=== PATIENT | male | born 1975 | race Caucasian/White ===

== ENCOUNTER → 2016-06-28 | Outpatient (CLI) | payer OTHER ==
[~2016-06-28] MED LIST: CAMP333T PO; DEPA500T2 PO; DIVA500T9 PO; FISHCAP PO; OMEG100011 PO; OMEP40CA2 PO; OXCA300T PO; PARO30TA2 PO; PAXI40TA2 PO; SERO200T2 PO; TRAZ100T2 PO; TRAZ150T PO; TRIL300S PO; TRIL600T PO; [UNRECOGNIZED DRUG - CODE] PO; [UNRECOGNIZED DRUG - CODE] PO
[2016-06-28 09:51] LABS: MEAN CORPUSCULAR HEMOGLOBIN 30.1 pg (27.0-33.0); MEAN CORPUSCULAR HGB CONC 33.5 g/dl (32.0-36.5); MEAN CORPUSCULAR VOLUME 89.9 fl (80.0-96.0); RED CELL DISTRIBUTION WIDTH 12.3 % (11.5-14.5); WHITE BLOOD COUNT 10.8 K/mm3 (4.0-10.0)
[2016-06-28 10:32] LABS: ALBUMIN/GLOBULIN RATIO 1.48 (1.00-1.93); ALKALINE PHOSPHATASE 86 U/L (45-117); ALT/SGPT 31 U/L (12-78); ANION GAP 7 MEQ/L (8-16); AST/SGOT 10 U/L (15-37); BILIRUBIN,TOTAL 0.3 MG/DL (0.2-1.0); BLOOD UREA NITROGEN 12 MG/DL (7-18); CALCIUM LEVEL 9.7 MG/DL (8.5-10.1); CARBON DIOXIDE LEVEL 28 MEQ/L (21-32); CHLORIDE LEVEL 107 MEQ/L (98-107); CHOLESTEROL LEVEL 151 MG/DL (<200); CREATININE FOR GFR 1.15 MG/DL (0.70-1.30); GLOMERULAR FILTRATION RATE > 60.0 (>60); GLUCOSE, FASTING 100 MG/DL (70-105); POTASSIUM SERUM 4.4 MEQ/L (3.5-5.1); SODIUM LEVEL 142 MEQ/L (136-145); TOTAL PROTEIN 6.7 GM/DL (6.4-8.2); TRIGLYCERIDES LEVEL 113 MG/DL (<150)
== END ==
LOC: M LAB 09:02
PROVIDERS: ATTEND Nurse Practitioner Family
DX: E78.00 Pure hypercholesterolemia, unspecified (principal); I10 Essential (primary) hypertension; E55.9 Vitamin D deficiency, unspecified

== ENCOUNTER → 2016-06-28 | Outpatient (CLI) | payer OTHER ==
[2016-06-28 10:40] LABS: MAGNESIUM LEVEL 2.1 MG/DL (1.8-2.4)
[2016-06-28 10:41] LABS: LITHIUM LEVEL 0.77 MEQ/L (0.60-1.20)
== END ==
LOC: M LAB 09:06
PROVIDERS: ATTEND Psychiatry & Neurology Psychiatry
DX: Z79.899 Other long term (current) drug therapy (principal); Z51.81 Encounter for therapeutic drug level monitoring

== ENCOUNTER → 2016-07-26 | Outpatient (REF) | payer OTHER ==
[2016-07-26 14:07] LABS: BASO % 0.6 % (0.0-1.0); EOS # 0.3 K/mm3 (0.0-0.50); EOS % 3.6 % (0.0-3.0); LARGE UNSTAINED CELL # 0.2 K/mm3 (0.0-0.4); LARGE UNSTAINED CELL % 2.2 % (0.0-4.0); LYMPH % 23.8 % (24.0-44.0); MEAN CORPUSCULAR HEMOGLOBIN 30.3 pg (27.0-33.0); MEAN CORPUSCULAR HGB CONC 33.2 g/dl (32.0-36.5); MEAN CORPUSCULAR VOLUME 91.4 fl (80.0-96.0); MONO # 0.5 K/mm3 (0.0-0.8); MONO % 5.6 % (0.0-5.0); NEUTROPHILS # 5.4 K/mm3 (1.8-7.7); NEUTROPHILS % 64.2 % (36.0-66.0); PLATELET COUNT, AUTOMATED 262 k/mm3 (150-450); RED CELL DISTRIBUTION WIDTH 11.8 % (11.5-14.5); WHITE BLOOD COUNT 8.4 K/mm3 (4.0-10.0)
[2016-07-26 14:13] LABS: ALBUMIN 4.4 GM/DL (3.2-5.2); ALBUMIN/GLOBULIN RATIO 1.52 (1.00-1.93); ALKALINE PHOSPHATASE 99 U/L (45-117); ALT/SGPT 31 U/L (12-78); ANION GAP 8 MEQ/L (8-16); AST/SGOT 10 U/L (15-37); BILIRUBIN,TOTAL 0.3 MG/DL (0.2-1.0); BLOOD UREA NITROGEN 13 MG/DL (7-18); CALCIUM LEVEL 9.5 MG/DL (8.5-10.1); CARBON DIOXIDE LEVEL 27 MEQ/L (21-32); CHLORIDE LEVEL 107 MEQ/L (98-107); CREATININE FOR GFR 1.21 MG/DL (0.70-1.30); FREE T4 1.05 NG/DL (0.76-1.46); GLOMERULAR FILTRATION RATE > 60.0 (>60); GLUCOSE, FASTING 98 MG/DL (70-105); POTASSIUM SERUM 4.4 MEQ/L (3.5-5.1); SODIUM LEVEL 142 MEQ/L (136-145); TOTAL PROTEIN 7.3 GM/DL (6.4-8.2)
[2016-07-26 14:20] LABS: VITAMIN B12 LEVEL 785 PG/ML (247-911)
== END ==
LOC: M LABNEURO 12:45
PROVIDERS: ATTEND Psychiatry & Neurology Neurology
DX: G21.11 Neuroleptic induced parkinsonism (principal); G25.0 Essential tremor; G24.8 Other dystonia

== ENCOUNTER → 2016-10-19 | Outpatient (CLI) | payer OTHER | LOC: M LAB 10:54 | PROVIDERS: ATTEND Psychiatry & Neurology Psychiatry | DX: Z51.81 Encounter for therapeutic drug level monitoring (principal); Z79.899 Other long term (current) drug therapy ==

== ENCOUNTER → 2016-10-19 | Outpatient (CLI) | payer OTHER | LOC: M LAB 10:59 | PROVIDERS: ATTEND Nurse Practitioner Family | DX: E55.9 Vitamin D deficiency, unspecified (principal) ==

== ENCOUNTER 2016-12-28 13:09 | Inpatient (IN) | payer OTHER ==
[~2016-12-28] VITALS: Ht 182.9 cm; Wt 97.0 kg
[2016-12-28] MEDS ORDERED: LAMO10TA PO (13:51)
[2016-12-28] MEDS ORDERED: VITA100T60 PO (13:51)
[2016-12-28] MEDS ORDERED: ANTA250T PO (13:51)
[2016-12-28] MEDS ORDERED: TRIH0.4E PO (13:51)
[2016-12-28] MEDS ORDERED: LISI10TA4 PO (13:51)
[2016-12-28] MEDS ORDERED: ALL10TAB27 PO (13:51)
[2016-12-28] MEDS ORDERED: PRIM250T8 PO (13:51)
[2016-12-28] MEDS ORDERED: OMEP40CA2 PO (13:51)
[2016-12-28] MEDS ORDERED: FISH1000 PO (13:51)
[2016-12-28] MEDS ORDERED: MAGN500C PO (13:51)
[2016-12-28] MEDS ORDERED: REXU1TAB6 PO (13:51)
[2016-12-28] MEDS ORDERED: VITA20008 PO (13:51)
[2016-12-28] MEDS ORDERED: SIMV20TA2 PO (13:51)
[2016-12-28] MEDS ORDERED: CALC950T PO (13:51)
[2016-12-28] MEDS ORDERED: LITH300C PO ×2 (13:51)
[2016-12-28 14:52] LABS: MEAN CORPUSCULAR HEMOGLOBIN 31.2 pg (27.0-33.0); MEAN CORPUSCULAR HGB CONC 33.3 g/dl (32.0-36.5); MEAN CORPUSCULAR VOLUME 93.5 fl (80.0-96.0); RED CELL DISTRIBUTION WIDTH 12.6 % (11.5-14.5); WHITE BLOOD COUNT 6.3 K/mm3 (4.0-10.0)
[2016-12-28 15:10] LABS: METHADONE URINE NEGATIVE (NEGATIVE)
[2016-12-28 15:21] LABS: ALBUMIN 3.8 GM/DL (3.2-5.2); ALBUMIN/GLOBULIN RATIO 1.27 (1.00-1.93); ALKALINE PHOSPHATASE 69 U/L (45-117); ALT/SGPT 26 U/L (12-78); ANION GAP 5 MEQ/L (8-16); AST/SGOT 13 U/L (15-37); BILIRUBIN,DIRECT 0.1 MG/DL (0.0-0.2); BILIRUBIN,TOTAL 0.5 MG/DL (0.2-1.0); BLOOD UREA NITROGEN 14 MG/DL (7-18); CALCIUM LEVEL 9.2 MG/DL (8.5-10.1); CARBON DIOXIDE LEVEL 26 MEQ/L (21-32); CHLORIDE LEVEL 103 MEQ/L (98-107); CREATININE FOR GFR 0.97 MG/DL (0.70-1.30); GLOMERULAR FILTRATION RATE > 60.0 (>60); GLUCOSE, FASTING 114 MG/DL (70-105); POTASSIUM SERUM 4.1 MEQ/L (3.5-5.1); SODIUM LEVEL 134 MEQ/L (136-145); TOTAL PROTEIN 6.8 GM/DL (6.4-8.2)
[2016-12-28 15:22] LABS: LITHIUM LEVEL 1.11 MEQ/L (0.60-1.20)
[2016-12-28] MEDS ORDERED: PRIM50TA6 PO (17:13)
[2016-12-28] MEDS ORDERED: TRIH5TAB PO (17:13)
[2016-12-28] MEDS ORDERED: MAALOX 30 ML SUSP *UDC PO PRN (17:15)
[2016-12-28] MEDS ORDERED: ACETAMINOPHEN TAB 650MG DOSE (2X325MG) PO PRN (17:15)
[2016-12-28 20:15] VITALS: BP 112/59
[2016-12-28] MEDS ORDERED: CALC250T PO (22:35)
[2016-12-28] MEDS: PRIMIDONE 50 MG TAB PO SCH (23:27)
[2016-12-28] MEDS: LITHIUM CARBONATE 300 MG CAP PO SCH (23:27)
[2016-12-28] MEDS: TRIHEXYPHENIDYL 2 MG TAB PO SCH (23:27)
[2016-12-28] MEDS: SIMVASTATIN 20 MG TAB PO SCH (23:27)
[2016-12-28] MEDS: OMEGA-3 1050MG CAPSULE PO SCH (23:27)
[2016-12-28] MEDS: VITAMIN D 1,000 INTERNATIONAL UNITS TABLET PO SCH (23:28)
[2016-12-29 07:15] VITALS: BP 108/57
[2016-12-29 07:32] VITALS: BP 108/57
[2016-12-29] MEDS: OMEPRAZOLE 20 MG CAP PO SCH (08:33)
[2016-12-29] MEDS: NICOTINE 14 MG/24 HR TRANSDERMAL TD SCH (08:33)
[2016-12-29] MEDS: LITHIUM CARBONATE 600 MG CAP PO SCH (08:33)
[2016-12-29] MEDS: TRIHEXYPHENIDYL 2 MG TAB PO SCH ×2 (08:34→21:51)
[2016-12-29] MEDS: OMEGA-3 1050MG CAPSULE PO SCH ×2 (08:34→21:50)
[2016-12-29] MEDS: CETIRIZINE (ZyrTEC) 10 MG TAB PO SCH (08:34)
[2016-12-29] MEDS: lamoTRIgine 100MG TAB PO SCH (08:34)
[2016-12-29] MEDS: THIAMINE 100 MG TAB PO SCH (08:36)
[2016-12-29] MEDS: PRIMIDONE 50 MG TAB PO SCH ×2 (08:36→21:50)
[2016-12-29] MEDS: LISINOPRIL 10 MG TAB PO SCH (08:36)
--- NOTE | 2016-12-29 09:35 | HPEPDOC ---
Medical History and Physical Date of Admission Dec 28, 2016 at 17:03 History and Physical PCP: [facility] ATTENDING: Dr. Omar Velazquez HPI: 41yoM admitted to [facility] for schizoaffective disorder, being medically examined today. No acute medical complaints today. Denies any fevers, chills, weakness, fatigue, HAYNES, CP, SOB, cough, palpitations, abdominal pain, N/V/D or changes in bowel or bladder habits. PMHx: Schizoaffective disorder Bipolar disorder Depression Anxiety Allergic rhinitis Hypertension Hyperlipidemia GERD Parkinsonism. Follows with Dr. Crystal PSHX: Denies SOCHX: Resides in: [facility]. Marital Status: Single Kids: None Employment: Unemployed Tobacco use: One half pack per day ETOH: 2 or 3 times in the past few months until blackout Illicit Drugs: Denies IV Drug Use: Denies Tattoos done unprofessionally: Denies FAMHX: Mother: Alive, well Father: Alive, well Siblings: Alive, well Children: None Unexpected deaths due to medical reasons: None. ROS: As noted in HPI, otherwise 11pt ROS of systems reviewed and unremarkable. PE: GEN: 41 yo M, appears stated age. Well-nourished, well developed. No acute distress. Alert and oriented x 3. Pleasant, interactive. HEENT: Normocephalic, atraumatic. Pupils are equal, round, and reactive to light. Extraocular movements are intact. No nystagmus appreciated. Sclera are nonicteric. Conjunctiva without injection. Nose midline. Nasal turbinates without bogginess. EACs both patent BL. TMs both visualized and wooten with good cone of light, no bulging or erythema. No facial asymmetry. Moist mucous membranes. Dentition fair. Pharynx pink and moist, no cobblestoning. Neck supple , trachea midline. No lymphadenopathy or thyromegaly appreciated. CHEST: Regular rate and rhythm, +S1, +S2 LUNGS: Clear to auscultation bilaterally. No wheezes, rales, or rhonchi. Breathing appears symmetric and easy. Patient is speaking in full sentences. No accessory muscle use. ABD: Round, soft, non-tender, non-distended. +Bowel sounds throughout. No rebound or guarding. No costovertebral angle tenderness. EXT: Pulses 2+ bilaterally dorsalis pedis and radial. No lower extremity edema appreciated. SKIN: Clifford, dry, warm. Capillary refill <2sec. No rashes. NEURO: Alert and oriented x 3. Cranial nerves III-XII are intact. No focal deficits appreciated. EKG: Pending. A&P: 41yoM admitted to [facility] for schizoaffective disorder 1. Psych. Plan per Psychiatry. Obtain baseline EKG to assure the safety of psychiatric medications as they can prolong the QT interval. 2. Nicotine dependence. Patch available. 3. Allergic rhinitis. Continue Zyrtec 10 mg daily. 4. Follow up with PCP on discharge. 5. Hypertension. Continue lisinopril 10 mg daily. 6. Hyperlipidemia. Continue Zocor 20 mg daily. 7. GERD. Continue Prilosec 40 mg daily. 8. Parkinsonism. Managed as outpatient by neurology, Dr. Crystal. Continue Artane 5 mg twice a day, primidone 50 mg twice a day. Outpatient follow-up. 9. Hyponatremia. Mild. Oral intake improved. Recheck BMP. 10. Staff member Alfredo present throughout exam. Vital Signs Vital Signs Date Time Temp Pulse Resp B/P (MAP) Pulse Ox O2 Delivery O2 Flow Rate FiO2 12/29/16 08:36 132/73 12/29/16 07:32 98.3 60 16 12/28/16 20:15 100 Room Air Laboratory Data Labs 24H Laboratory Tests 2 12/28/16 14:29: Anion Gap 5L, Glomerular Filtration Rate > 60.0, Calcium Level 9.2, Aspartate Amino Transf (AST/SGOT) 13L, Alanine Aminotransferase (ALT/SGPT) 26, Alkaline Phosphatase 69, Total Bilirubin 0.5, Direct Bilirubin 0.1, Total Protein 6.8, Albumin 3.8, Albumin/Globulin Ratio 1.27, Thyroid Stimulating Hormone (TSH) 1.500, Salicylates Level < 1.7L, Urine Amphetamines Screen NEGATIVE, Urine Benzodiazepines Screen NEGATIVE, Urine Opiates Screen NEGATIVE, Urine Methadone Screen NEGATIVE, Acetaminophen Level < 2.0L, Urine Barbiturates Screen POSITIVEH , Urine Phencyclidine Screen NEGATIVE, Derby Level 1.11, Urine Cocaine Metabolite Screen NEGATIVE, Urine Cannabinoids Screen NEGATIVE, Ethyl Alcohol Level < 0.003 CBC/BMP Laboratory Tests 12/28/16 14:29 Red Blood Count 4.50, Mean Corpuscular Volume 93.5, Mean Corpuscular Hemoglobin 31.2, Mean Corpuscular Hemoglobin Concent 33.3, Red Cell Distribution Width 12.6 Home Medications Scheduled Brexpiprazole (Rexulti) 4 Mg Tab, 4 MG PO DAILY Calcium Citrate (Calcium Citrate) 250 Mg Tab, 250 MG PO DAILY for SUPPLEMENT Cetirizine HCl (All Day Allergy) 10 Mg Tab, 10 MG PO DAILY Cholecalciferol (Vitamin D3) 2,000 Unit Tab, 2,000 UNIT PO QHS Disulfiram (Antabuse) 250 Mg Tab, 250 MG PO DAILY Fish Oil (Fish Oil) 1,000 Mg Cap, 1,000 MG PO BID Lamotrigine (LaMICtal) 100 Mg Tab, 200 MG PO DAILY Lisinopril (Lisinopril) 10 Mg Tab, 10 MG PO DAILY Derby Carbonate (Derby Carbonate) 300 Mg Cap, 600 MG PO QAM Derby Carbonate (Derby Carbonate) 300 Mg Cap, 900 MG PO QHS Magnesium Oxide (Magnesium) 500 Mg Cap, 500 MG PO DAILY Omeprazole (Omeprazole) 40 Mg Cap, 40 MG PO DAILY Primidone (Primidone) 50 Mg Tab, 50 MG PO BID Simvastatin (Simvastatin) 20 Mg Tab, 20 MG PO QHS Thiamine HCl (Vitamin B1) 100 Mg Tab, 100 MG PO DAILY Trihexyphenidyl HCl (Trihexyphenidyl HCl) 5 Mg Tab, 5 MG PO BID Allergies Coded Allergies: No Known Allergies (Verified , 12/28/16) Alison Joseph Dec 29, 2016 09:35
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
[2016-12-29 18:00] VITALS: BP 141/85
[2016-12-29] MEDS: VITAMIN D 1,000 INTERNATIONAL UNITS TABLET PO SCH (21:50)
[2016-12-29] MEDS: traZODone 50 MG TAB PO PRN (21:50)
[2016-12-29] MEDS: SIMVASTATIN 20 MG TAB PO SCH (21:50)
[2016-12-29] MEDS: LITHIUM CARBONATE 300 MG CAP PO SCH (21:53)
[2016-12-30 06:46] VITALS: BP 110/52
[2016-12-30] MEDS: OMEPRAZOLE 20 MG CAP PO SCH (08:17)
[2016-12-30] MEDS: NICOTINE 14 MG/24 HR TRANSDERMAL TD SCH (08:17)
[2016-12-30] MEDS: LISINOPRIL 10 MG TAB PO SCH (08:18)
[2016-12-30] MEDS: lamoTRIgine 100MG TAB PO SCH (08:18)
[2016-12-30] MEDS: PRIMIDONE 50 MG TAB PO SCH ×2 (08:18→21:00)
[2016-12-30] MEDS: OMEGA-3 1050MG CAPSULE PO SCH ×2 (08:18→23:15)
[2016-12-30] MEDS: THIAMINE 100 MG TAB PO SCH (08:18)
[2016-12-30] MEDS: CETIRIZINE (ZyrTEC) 10 MG TAB PO SCH (08:18)
[2016-12-30] MEDS: LITHIUM CARBONATE 600 MG CAP PO SCH (08:18)
[2016-12-30] MEDS: TRIHEXYPHENIDYL 2 MG TAB PO SCH ×2 (08:19→23:16)
--- NOTE | 2016-12-30 16:56 | IPN ---
DATE: 12/30/2016 VITAL SIGNS: Temperature 98.6, pulse 56, respirations 19, blood pressure 110/52. CURRENT MEDICATIONS: - Lamictal 200 mg daily - lithium 600 mg every morning, 900 mg at bedtime - trazodone 50 mg at bedtime as needed HISTORY OF PRESENT ILLNESS: This is a 41-year-old white male with history of schizoaffective disorder and alcoholism. The patient was brought in by transitional living services ([facility]) staff who has noticed recent decompensation. The patient had relapsed to his alcoholism and was drinking daily. The patient feels tired today. He finds it hard to get out of bed. He feels depressed at a level of 7/10. He has had no need for alcohol detox. He feels comfortable with his current psychotropics. He has no other complaints. MENTAL STATUS EXAMINATION: Affect appears sad. Mood is moderately depressed. He is not voicing any suicidal thoughts today. He is not homicidal. Grooming and hygiene are poor. Memory functions appear intact. DIAGNOSES: 1. Schizoaffective disorder, depressed. 2. Alcohol use disorder. PLAN: Maintain current psychotropics. Encourage involvement in hospital milieu.
[2016-12-30 18:00] VITALS: BP 98/54
--- NOTE | 2016-12-30 18:43 | ECGEPIP ---
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
[2016-12-30] MEDS: MOM 30ML SUSPENSION UDC PO PRN (19:02)
[2016-12-30] MEDS: SIMVASTATIN 20 MG TAB PO SCH (23:15)
[2016-12-30] MEDS: LITHIUM CARBONATE 300 MG CAP PO SCH (23:16)
[2016-12-30] MEDS: VITAMIN D 1,000 INTERNATIONAL UNITS TABLET PO SCH (23:17)
[2016-12-31] MEDS: traZODone 50 MG TAB PO PRN ×2 (01:23→22:31)
[2016-12-31 06:26] VITALS: BP 122/57
[2016-12-31] MEDS: OMEGA-3 1050MG CAPSULE PO SCH ×2 (08:29→22:32)
[2016-12-31] MEDS: lamoTRIgine 100MG TAB PO SCH (08:29)
[2016-12-31] MEDS: LITHIUM CARBONATE 600 MG CAP PO SCH (08:29)
[2016-12-31] MEDS: NICOTINE 14 MG/24 HR TRANSDERMAL TD SCH (08:29)
[2016-12-31] MEDS: PRIMIDONE 50 MG TAB PO SCH ×2 (08:29→22:31)
[2016-12-31] MEDS: THIAMINE 100 MG TAB PO SCH (08:29)
[2016-12-31] MEDS: LISINOPRIL 10 MG TAB PO SCH (08:30)
[2016-12-31] MEDS: OMEPRAZOLE 20 MG CAP PO SCH (08:30)
[2016-12-31] MEDS: TRIHEXYPHENIDYL 2 MG TAB PO SCH ×2 (08:31→22:31)
[2016-12-31] MEDS: CETIRIZINE (ZyrTEC) 10 MG TAB PO SCH (08:31)
--- NOTE | 2016-12-31 14:17 | IPN ---
DATE: 12/31/2016 VITAL SIGNS: Temperature 98.0, pulse 56, respirations 18, blood pressure 122/ 57. CURRENT MEDICATIONS: - Lamictal 200 mg daily - lithium 600 mg every morning, 900 mg nightly - Artane 5 mg twice a day - trazodone 50 mg nightly HISTORY OF PRESENT ILLNESS: Patient states his goal today is to get out of bed more. Patient has been isolating a lot and sleeping a lot, which he realizes is bad for him. He still has some weepy episodes but not as severe today. He denies recent psychosis. Depression persists in the moderate range but this is an improvement over yesterday. He reports having a bit more energy today compared to yesterday. Now craving for alcohol. MENTAL STATUS EXAMINATION: Affect is still sad. Mood is mildly to moderately depressed. No current suicidal ideation noted today. Grooming and hygiene remain poor. Insight and judgment are poor. DIAGNOSES: Schizoaffective disorder, depressed. Alcohol use disorder. PLAN: Maintain psychotropics. Patient encouraged to get out of bed as much as possible and attend milieu therapy. NYDIA
[2016-12-31 18:00] VITALS: BP 112/55
[2016-12-31] MEDS: VITAMIN D 1,000 INTERNATIONAL UNITS TABLET PO SCH (22:31)
[2016-12-31] MEDS: SIMVASTATIN 20 MG TAB PO SCH (22:31)
[2016-12-31] MEDS: LITHIUM CARBONATE 300 MG CAP PO SCH (22:32)
[2016-12-31] MEDS: MOM 30ML SUSPENSION UDC PO PRN (22:36)
[2017-01-01 06:00] VITALS: BP 105/59
[2017-01-01] MEDS: OMEGA-3 1050MG CAPSULE PO SCH ×2 (09:02→22:04)
[2017-01-01] MEDS: PRIMIDONE 50 MG TAB PO SCH ×2 (09:02→22:04)
[2017-01-01] MEDS: CETIRIZINE (ZyrTEC) 10 MG TAB PO SCH (09:02)
[2017-01-01] MEDS: TRIHEXYPHENIDYL 2 MG TAB PO SCH ×2 (09:02→22:04)
[2017-01-01] MEDS: LITHIUM CARBONATE 600 MG CAP PO SCH (09:03)
[2017-01-01] MEDS: OMEPRAZOLE 20 MG CAP PO SCH (09:03)
[2017-01-01] MEDS: lamoTRIgine 100MG TAB PO SCH (09:03)
[2017-01-01] MEDS: THIAMINE 100 MG TAB PO SCH (09:03)
[2017-01-01] MEDS: LISINOPRIL 10 MG TAB PO SCH (09:04)
[2017-01-01] MEDS: NICOTINE 14 MG/24 HR TRANSDERMAL TD SCH (09:05)
[2017-01-01 10:11] LABS: ANION GAP 9 MEQ/L (8-16); BLOOD UREA NITROGEN 8 MG/DL (7-18); CALCIUM LEVEL 9.7 MG/DL (8.5-10.1); CARBON DIOXIDE LEVEL 26 MEQ/L (21-32); CHLORIDE LEVEL 105 MEQ/L (98-107); GLOMERULAR FILTRATION RATE > 60.0 (>60); GLUCOSE, FASTING 106 MG/DL (70-105); POTASSIUM SERUM 3.9 MEQ/L (3.5-5.1); SODIUM LEVEL 140 MEQ/L (136-145)
[2017-01-01] MEDS: SERTRALINE HCL 25 MG TABLET PO SCH (10:12)
[2017-01-01 18:00] VITALS: BP 116/57
[2017-01-01] MEDS: LITHIUM CARBONATE 300 MG CAP PO SCH (22:05)
[2017-01-01] MEDS: SIMVASTATIN 20 MG TAB PO SCH (22:05)
[2017-01-01] MEDS: VITAMIN D 1,000 INTERNATIONAL UNITS TABLET PO SCH (22:05)
[2017-01-01] MEDS: RAMELTEON 8 MG TAB (ROZEREM) PO SCH (22:08)
[2017-01-02 06:36] VITALS: BP 100/58
--- NOTE | 2017-01-02 07:34 | IPN ---
DATE: 01/01/2017 I evaluated 41-year-old male known for 1) Schizoaffective disorder, depressed and 2) Alcohol use disorder. The patient is on these medications: Lamictal 200 mg by mouth daily, lithium 600 mg by mouth every morning and 900 mg by mouth daily at bedtime, primidone or Mysoline 50 mg by mouth twice daily. He is on Sertraline 12.5 by mouth daily (Sertraline or Zoloft). He is on Artane or trihexyphenidyl 5 mg twice a day and on Rozerem 8 mg by mouth daily at bedtime as of today December. The patient was started on Rozerem because he said that he did not feel well with the previous medication that he had for sleep. HISTORY OF PRESENT ILLNESS: Patient was brought to the emergency room because he told [facility] worker that he had suicidal thoughts, he felt the urge to cut his wrist when he looked at it. He also had been drinking too much and he had not gotten out of bed in days, he felt very sleepy even before he started drinking. He has reported that he has been sleeping too much for a long time, has very low energy levels, he is not socializing, is not interested in his usual activities, has anhedonia and has had suicidal thoughts of cutting his wrists when he sees his wrists. MENTAL STATUS EXAMINATION: The patient is alert, oriented times three, cooperative and pleasant with interview but his mood and affect are sad/ depressed. His eye contact is good, his insight and judgment are improving but very slowly. His thought process is positive for thought blocking, his thought content is not goal directed, he is still confused, particularly because he is forgetful and has thought blocking. He denies having cravings for alcohol, but he continues to feel depressed. He says that his attention and concentration are still very low, it is difficult for him to follow a conversation because he has problems focusing. DIAGNOSIS: 1.- Schizoaffective disorder, bypolar type 2.-Alcohol use disorder. PLAN: Continue on the same medications. Patient is being encouraged to stay out of bed and participate in groups and attend groups. Will monitor closely and will followup. NYDIA
[2017-01-02] MEDS: CETIRIZINE (ZyrTEC) 10 MG TAB PO SCH (09:04)
[2017-01-02] MEDS: OMEGA-3 1050MG CAPSULE PO SCH ×2 (09:04→22:12)
[2017-01-02] MEDS: NICOTINE 14 MG/24 HR TRANSDERMAL TD SCH (09:04)
[2017-01-02] MEDS: SERTRALINE HCL 25 MG TABLET PO SCH (09:05)
[2017-01-02] MEDS: PRIMIDONE 50 MG TAB PO SCH ×2 (09:05→22:13)
[2017-01-02] MEDS: LISINOPRIL 10 MG TAB PO SCH (09:05)
[2017-01-02] MEDS: LITHIUM CARBONATE 600 MG CAP PO SCH (09:05)
[2017-01-02] MEDS: lamoTRIgine 100MG TAB PO SCH (09:05)
[2017-01-02] MEDS: OMEPRAZOLE 20 MG CAP PO SCH (09:05)
[2017-01-02] MEDS: THIAMINE 100 MG TAB PO SCH (09:05)
[2017-01-02] MEDS: TRIHEXYPHENIDYL 2 MG TAB PO SCH ×2 (09:06→22:12)
[2017-01-02] MEDS: DOCUSATE SODIUM 100 MG CAP PO PRN (16:19)
[2017-01-02 18:00] VITALS: BP 123/67
--- NOTE | 2017-01-02 21:13 | IPN ---
DATE: 01/02/2017 A 41-year-old male with a history of (1) schizoaffective disorder, bipolar type, (2) alcohol use disorder. SUBJECTIVE: The patient reports feeling a little bit better but still having problems with paying attention and concentrating. He reports periods during which it is hard for him to follow a conversation, and he loses the trail of this thoughts. He says he still feels very low regarding his energy levels, feels sad, although he denies suicidal thoughts. OBJECTIVE: The patient is alert, cooperative, oriented times three, pleasant with poor eye contact, disheveled. Thought process is intact. Thought content is still disorganized, not goal directed. Speech is soft spoken, not tangential and not circumstantial, coherent. Abstract thinking and computation unable to assess. The patient has problems with maintaining attention and concentration, and for that reason, it is not possible for him at this time to cooperate with this part of the mental status examination. Memory, recent and remote, is fair. His insight and judgment are fair, his impulse control is fair. ASSESSMENT: The patient is a little bit better, his speech is more spontaneous, more fluid. He has less thought blocking than before. PLAN: Continue on the same medications, encourage him to stay out of bed as much as he can and attend groups to learn coping skills that could help him as an outpatient. Will followup.
[2017-01-02] MEDS: LITHIUM CARBONATE 300 MG CAP PO SCH (22:13)
[2017-01-02] MEDS: SIMVASTATIN 20 MG TAB PO SCH (22:13)
[2017-01-02] MEDS: VITAMIN D 1,000 INTERNATIONAL UNITS TABLET PO SCH (22:13)
[2017-01-02] MEDS: RAMELTEON 8 MG TAB (ROZEREM) PO SCH (23:52)
[2017-01-03 06:34] VITALS: BP 118/68
[2017-01-03] MEDS: LITHIUM CARBONATE 600 MG CAP PO SCH (08:55)
[2017-01-03] MEDS: LISINOPRIL 10 MG TAB PO SCH (08:56)
[2017-01-03] MEDS: CETIRIZINE (ZyrTEC) 10 MG TAB PO SCH (08:56)
[2017-01-03] MEDS: TRIHEXYPHENIDYL 2 MG TAB PO SCH ×2 (08:56→21:58)
[2017-01-03] MEDS: lamoTRIgine 100MG TAB PO SCH (08:56)
[2017-01-03] MEDS: THIAMINE 100 MG TAB PO SCH (08:56)
[2017-01-03] MEDS: OMEGA-3 1050MG CAPSULE PO SCH ×2 (08:56→21:58)
[2017-01-03] MEDS: OMEPRAZOLE 20 MG CAP PO SCH (08:56)
[2017-01-03] MEDS: PRIMIDONE 50 MG TAB PO SCH ×2 (08:56→21:58)
[2017-01-03] MEDS: NICOTINE 14 MG/24 HR TRANSDERMAL TD SCH (08:57)
[2017-01-03] MEDS ORDERED: SERTRALINE HCL 25 MG TABLET PO SCH (09:00)
[2017-01-03] MEDS: NICOTINE 21MG/24HR 1 EA TRANSDERMAL TD SCH (11:54)
--- NOTE | 2017-01-03 16:45 | MHIPNPDOC ---
[facility] Progress Note Progress Note DATE OF SERVICE: 01/03/17 INTERVAL HISTORY: Medication Side effects: Denies medication side effects. Says he still has problems with sleep, but is not all the time. Behavior: He has been interacting properly with staff and peers. Group Attendance: He has been trying to attend groups but sometimes he can't because he's very tired. Psychiatric Symptom change: Affect is less flat/constricted VITAL SIGNS: See below. NEW TEST RESULTS: See below CURRENT MEDICATIONS: See below. MENTAL STATUS EXAMINATION: General:Alert, cooperative, pleasant, with improved eye contact. Smiles at times. Speech: Coherent, but he still has thought blocking and interrupts his conversation because he forgets what he was going to say. Thought processes: A little bit more organized, but still has thought blocking Thought content: Coherent Abstract reasoning, and computation: Fair Description of associations:Good Description of abnormal or psychotic thoughts:Denies suicidal ideation, homicidal ideation, thought delusions and auditory/visual hallucinations. Judgment: Imnproving Insight: Improving Orientation:Oriented x 3 Recent and remote memory: Fair Attention span and concentration: Easily distracted Fund of knowledge: Fair Mood: "I'm still a little sad and tired" Affect: Constricted but for the first time he smiled twice. DIAGNOSES: 1. Schizoafective disorder, bipolar 2. Alcohol use disorder 3. Marijuana Use disorder ASSESSMENT:Patient is slowly improving. He is able to smile, his affect is less constricted, his speech is more fluid, has less psychomotor retardation, but he is still depressed. MANAGEMENT PLAN: Medications: Will start Abilify 2.5 mgs. PO QHS, will try Rozerem 8 mgs. PO QHS and increase Zoloft to 50 mgs. PO QD. He has Nicotine cravings, his patch will be changed to 21 mgs/day Psychotherapy:Will encourage to continue group attendance Social: Has good family and social support. Misc: ----- Disposition: Pt. needs to continue hospitalization for stabilization. TIME SPENT: 30 minutes. Vital Signs Vital Signs Date Time Temp Pulse Resp B/P (MAP) Pulse Ox O2 Delivery O2 Flow Rate FiO2 01/03/17 08:56 112/67 01/03/17 08:16 Room Air 01/03/17 06:34 98.6 54 16 7/13/17 20:15 100 Laboratory Data 24H Labs Laboratory Tests 2 01/03/17 10:40: [place] Level 1.22H Current Medications Current Medications Acetaminophen (Tylenol Tab) 650 mg Q6HP PRN PO HEADACHE or DISCOMFORT Last administered on 01/03/17 02:36; Start 12/28/16 at 17:15; Stop 01/27/17 at 17:14 Al Hydrox/Mg Hydrox/Simethicone (Mylanta) 30 ml Q4HP PRN PO HEARTBURN/ INDIGESTION; Start 12/28/16 at 17:15; Stop 01/27/17 at 17:14 Aripiprazole (AbiLIFY) 2.5 mg QHS PO ; Start 01/03/17 at 21:00; Stop 02/02/17 at 20:59 Cetirizine HCl (ZyrTEC) 10 mg DAILY PO Last administered on 01/03/17 08:56; Start 12/29/16 at 09:00; Stop 01/28/17 at 08:59 Docusate Sodium (Colace) 100 mg DAILYPRN PRN PO CONSTIPATION Last administered on 01/02/17 16:19; Start 01/02/17 at 12:45; Stop 02/01/17 at 12:44 Fish Oil ([place]-3 (1050mg)) 1 ea BID PO Last administered on 01/03/17 08:56; Start 12/28/16 at 21:00; Stop 01/27/17 at 20:59 Home Med (Med Rec Complete!) ASDIRECTED XX ; Start 12/28/16 at 17:15; Stop at 17:17; Status DC Hydroxyzine HCl (Atarax) 50 mg QHS PO ; Start 01/03/17 at 21:00; Stop 02/02/17 at 20:59 Lamotrigine (LaMICtal) 200 mg DAILY PO Last administered on 01/03/17 08:56; Start 12/29/16 at 09:00; Stop 01/28/17 at 08:59 Lisinopril (Prinivil) 10 mg DAILY PO Last administered on 01/03/17 08:56; Start 12/29/16 at 09:00; Stop 01/28/17 at 08:59 [place] Carbonate ([place] Carbonate) 600 mg QAM PO Last administered on 08:55; Start 12/29/16 at 09:00; Stop 01/28/17 at 08:59 [place] Carbonate ([place] Carbonate) 900 mg QHS PO Last administered on 22:13; Start 12/28/16 at 21:00; Stop 01/27/17 at 20:59 Magnesium Hydroxide (Milk Of Magnesia) 30 ml DAILYPRN PRN PO CONSTIPATION Last administered on 12/31/16 22:36; Start 12/28/16 at 17:15; Stop 01/27/17 at 17:14 Nicotine (Nicoderm Cq 14mg) 1 patch DAILY TD Last administered on 01/03/17 08: 57; Start 12/29/16 at 09:00; Stop 01/03/17 at 10:34; Status DC Nicotine (Nicoderm Cq 21mg) 1 patch DAILY TD Last administered on 01/03/17 11: 54; Start 01/03/17 at 09:00; Stop 02/02/17 at 08:59 Omeprazole (PriLOSEC) 40 mg DAILY PO Last administered on 01/03/17 08:56; Start 12/29/16 at 09:00; Stop 01/28/17 at 08:59 Primidone (Mysoline) 50 mg BID PO Last administered on 01/03/17 08:56; Start 12/28/16 at 21:00; Stop 01/27/17 at 20:59 Ramelteon (Rozerem) 8 mg QHS PO Last administered on 01/02/17 23:52; Start at 21:00; Stop 01/31/17 at 20:59 Sertraline HCl (Zoloft) 12.5 mg DAILY PO Last administered on 01/02/17 09:05; Start 01/01/17 at 09:00; Stop 01/02/17 at 12:39; Status DC Sertraline HCl (Zoloft) 25 mg DAILY PO Last administered on 01/03/17 08:55; Start 01/03/17 at 09:00; Stop 01/03/17 at 10:11; Status DC Sertraline HCl (Zoloft) 50 mg DAILY PO ; Start 01/04/17 at 09:00; Stop 02/03/17 at 08:59 Simvastatin (Zocor) 20 mg QHS PO Last administered on 01/02/17 22:13; Start at 21:00; Stop 01/27/17 at 20:59 Thiamine HCl (Thiamine HCl) 100 mg DAILY PO Last administered on 01/03/17 08: 56; Start 12/29/16 at 09:00; Stop 01/28/17 at 08:59 Trazodone HCl (Desyrel) 50 mg QHSP PRN PO INSOMNIA Last administered on 22:31; Start 12/28/16 at 17:15; Stop 01/01/17 at 09:37; Status DC Trihexyphenidyl HCl (Artane) 5 mg BID PO Last administered on 01/03/17 08:56; Start 12/28/16 at 21:00; Stop 01/27/17 at 20:59 Vitamin D (Vitamin D) 2,000 units QHS PO Last administered on 01/02/17 22:13; Start 12/28/16 at 21:00; Stop 01/27/17 at 20:59 Allergies Coded Allergies: No Known Allergies (Verified , 12/28/16) CLAIRE SONG MD Jan 03, 2017 16:45
[2017-01-03 18:14] VITALS: BP 104/58
[2017-01-03] MEDS: LITHIUM CARBONATE 300 MG CAP PO SCH (21:58)
[2017-01-03] MEDS: VITAMIN D 1,000 INTERNATIONAL UNITS TABLET PO SCH (21:58)
[2017-01-03] MEDS: SIMVASTATIN 20 MG TAB PO SCH (21:58)
[2017-01-03] MEDS: DOCUSATE SODIUM 100 MG CAP PO PRN (21:58)
[2017-01-03] MEDS: hydrOXYzine 50 MG TAB PO SCH (21:59)
[2017-01-03] MEDS: RAMELTEON 8 MG TAB (ROZEREM) PO SCH (21:59)
[2017-01-04 07:07] VITALS: BP 107/57
[2017-01-04] MEDS ORDERED: SERTRALINE HCL 50 MG TAB PO SCH (09:00)
[2017-01-04] MEDS: lamoTRIgine 100MG TAB PO SCH (09:43)
[2017-01-04] MEDS: OMEPRAZOLE 20 MG CAP PO SCH (09:44)
[2017-01-04] MEDS: PRIMIDONE 50 MG TAB PO SCH ×2 (09:44→22:11)
[2017-01-04] MEDS: THIAMINE 100 MG TAB PO SCH (09:44)
[2017-01-04] MEDS: OMEGA-3 1050MG CAPSULE PO SCH ×2 (09:44→22:11)
[2017-01-04] MEDS: TRIHEXYPHENIDYL 2 MG TAB PO SCH ×2 (09:45→22:13)
[2017-01-04] MEDS: NICOTINE 21MG/24HR 1 EA TRANSDERMAL TD SCH (09:45)
[2017-01-04] MEDS: CETIRIZINE (ZyrTEC) 10 MG TAB PO SCH (09:45)
[2017-01-04] MEDS: LISINOPRIL 10 MG TAB PO SCH (09:45)
[2017-01-04] MEDS: LITHIUM CARBONATE 600 MG CAP PO SCH (10:26)
[2017-01-04 15:13] LABS: BASO # 0.1 K/mm3 (0.0-0.2); BASO % 1.2 % (0.0-1.0); EOS # 0.2 K/mm3 (0.0-0.50); EOS % 3.2 % (0.0-3.0); LARGE UNSTAINED CELL # 0.2 K/mm3 (0.0-0.4); LARGE UNSTAINED CELL % 2.1 % (0.0-4.0); LYMPH # 1.7 K/mm3 (1.5-4.5); LYMPH % 21.7 % (24.0-44.0); MEAN CORPUSCULAR HEMOGLOBIN 31.4 pg (27.0-33.0); MEAN CORPUSCULAR HGB CONC 33.6 g/dl (32.0-36.5); MEAN CORPUSCULAR VOLUME 93.5 fl (80.0-96.0); MONO # 0.5 K/mm3 (0.0-0.8); MONO % 5.9 % (0.0-5.0); NEUTROPHILS # 5.2 K/mm3 (1.8-7.7); NEUTROPHILS % 65.8 % (36.0-66.0); PLATELET COUNT, AUTOMATED 304 k/mm3 (150-450); RED CELL DISTRIBUTION WIDTH 12.3 % (11.5-14.5); WHITE BLOOD COUNT 7.9 K/mm3 (4.0-10.0)
[2017-01-04] MEDS: DOCUSATE SODIUM 100 MG CAP PO PRN (16:03)
[2017-01-04 18:00] VITALS: BP 122/62
[2017-01-04] MEDS: hydrOXYzine 50 MG TAB PO SCH (22:11)
[2017-01-04] MEDS: LORazepam 0.5 MG TAB PO PRN (22:11)
[2017-01-04] MEDS: SIMVASTATIN 20 MG TAB PO SCH (22:11)
[2017-01-04] MEDS: VITAMIN D 1,000 INTERNATIONAL UNITS TABLET PO SCH (22:12)
[2017-01-04] MEDS: LITHIUM CARBONATE 300 MG **CR** TAB PO SCH (22:12)
[2017-01-04] MEDS: traZODone 25MG PER 1/2 TABLET PO SCH (22:12)
[2017-01-05 06:28] VITALS: BP 112/56
[2017-01-05] MEDS: LORazepam 0.5 MG TAB PO PRN (09:04)
[2017-01-05] MEDS: OMEGA-3 1050MG CAPSULE PO SCH ×2 (09:05→22:00)
[2017-01-05] MEDS: LITHIUM CARBONATE 300 MG **CR** TAB PO SCH ×2 (09:05→22:00)
[2017-01-05] MEDS: PRIMIDONE 50 MG TAB PO SCH ×2 (09:05→22:00)
[2017-01-05] MEDS: SERTRALINE HCL 25 MG TABLET PO SCH (09:05)
[2017-01-05] MEDS: OMEPRAZOLE 20 MG CAP PO SCH (09:05)
[2017-01-05] MEDS: THIAMINE 100 MG TAB PO SCH (09:05)
[2017-01-05] MEDS: TRIHEXYPHENIDYL 2 MG TAB PO SCH ×2 (09:05→21:59)
[2017-01-05] MEDS: CETIRIZINE (ZyrTEC) 10 MG TAB PO SCH (09:07)
[2017-01-05] MEDS: NICOTINE 21MG/24HR 1 EA TRANSDERMAL TD SCH (09:07)
[2017-01-05] MEDS: lamoTRIgine 100MG TAB PO SCH (09:07)
[2017-01-05] MEDS: LISINOPRIL 10 MG TAB PO SCH (09:07)
--- NOTE | 2017-01-05 16:15 | IPN ---
DATE: 01/04/2017 INTERVAL HISTORY: Medication side effects: The patient reports that he is feeling very sleepy, very tired. He slept all morning and continues to feel tired. He reported he has muscle aches. Behavior: He has not had any behavioral problems, has been compliant, polite, and appropriate to staff and peers. Group attendance: He skipped all groups today out of tiredness and sleepiness. Will encourage him to attend groups. Psychiatric symptom change: He reported extremely low energy, lack of interest, and sadness today. VITAL SIGNS: Normal. NEW TEST RESULTS: [place] level 1.22 (high). CURRENT MEDICATIONS: The patient continues to be on the same medications that he was yesterday, but lithium has been reduced to 600 mg twice a day instead of the previous dose that was 600 mg in the morning and 900 mg by mouth at bedtime. Abilify has been increased to 5 mg by mouth at bedtime, and Rozerem was discontinued because it did not help him to get a good night's sleep, so he was started again on trazodone 100 mg. MENTAL STATUS EXAMINATION: General: Alert, cooperative, looking older than stated, looking tired, disheveled. Speech: Coherent, with thought blocking. Thought processes: More organized. Thought content coherent. Abstract reasoning and computation: Fair. Descriptions of associations: Good. Description of abnormal or psychotic thoughts: The patient denies suicidal ideation, homicidal ideation, auditory or visual hallucinations, and thought delusions, but admits that when he looks at his wrists, he feels the urge to cut and has occasional suicidal thoughts. Judgment: Improving. Insight: Improving, oriented times three. Recent and remote memory: Fair. Attention and concentration span: He is able to focus, but with difficulty. Fund of knowledge: Fair. Mood: "I feel tired and sad today." Affect: Constricted. DIAGNOSES: 1. Schizoaffective disorder, bipolar type. 2. Alcohol use disorder. 3. Marijuana use disorder. ASSESSMENT: The patient is not doing well today, probably he is coming up with a cold. To rule out infection, we will order complete blood count (CBC) with differential. MANAGEMENT PLAN: The patient will continue on the same medications, but we will decrease Zoloft to 25 mg by mouth daily. He reported difficulty sleeping for the last two nights, and waking up having panic attacks. Probably Zoloft is activating him. He will also be started on Ativan 0.5 mg by mouth twice a day as needed for panic attacks. Psychotherapy will continue to encourage him to attend groups. Social: He has not been willing to call his family or friends and tell them that he is at the hospital because he feels like a failure for being there. The patient has been encouraged to call his family and friends so that he will receive visits from them. DISPOSITION: The patient needs more time at the inpatient mental health unit to observe his response to Abilify, to adjustment in lithium, Zoloft and a new medication, Ativan, for his panic attacks. Possible day of discharge: Next Sunday. TIME SPENT: 30 minutes.
[2017-01-05 18:00] VITALS: BP 110/60
[2017-01-05] MEDS: hydrOXYzine 50 MG TAB PO SCH (21:59)
[2017-01-05] MEDS: VITAMIN D 1,000 INTERNATIONAL UNITS TABLET PO SCH (21:59)
[2017-01-05] MEDS: traZODone 25MG PER 1/2 TABLET PO SCH (21:59)
[2017-01-05] MEDS: SIMVASTATIN 20 MG TAB PO SCH (21:59)
[2017-01-05] MEDS: ARIPiprazole 15 MG TAB (AbiLIFY) PO SCH (22:00)
[2017-01-06 06:27] VITALS: BP 123/64
[2017-01-06] MEDS: PRIMIDONE 50 MG TAB PO SCH ×2 (09:12→21:39)
[2017-01-06] MEDS: OMEPRAZOLE 20 MG CAP PO SCH (09:12)
[2017-01-06] MEDS: lamoTRIgine 100MG TAB PO SCH (09:13)
[2017-01-06] MEDS: THIAMINE 100 MG TAB PO SCH (09:13)
[2017-01-06] MEDS: LITHIUM CARBONATE 300 MG **CR** TAB PO SCH ×2 (09:13→21:42)
[2017-01-06] MEDS: OMEGA-3 1050MG CAPSULE PO SCH ×2 (09:13→21:39)
[2017-01-06] MEDS: LORazepam 0.5 MG TAB PO PRN (09:13)
[2017-01-06] MEDS: SERTRALINE HCL 25 MG TABLET PO SCH (09:13)
[2017-01-06] MEDS: CETIRIZINE (ZyrTEC) 10 MG TAB PO SCH (09:14)
[2017-01-06] MEDS: NICOTINE 21MG/24HR 1 EA TRANSDERMAL TD SCH (09:14)
[2017-01-06] MEDS: TRIHEXYPHENIDYL 2 MG TAB PO SCH ×2 (09:15→21:42)
[2017-01-06] MEDS: LISINOPRIL 10 MG TAB PO SCH (09:15)
--- NOTE | 2017-01-06 09:15 | IPN ---
DATE: 01/05/2017 VITAL SIGNS: Temperature 98.9, pulse 66, respirations 18, blood pressure 112/56. CURRENT MEDICATIONS: - Abilify 5 mg at bedtime - Zoloft 25 mg every morning - lithium 600 mg twice a day - trazodone 75 mg at bedtime - Lamictal 200 mg per day HISTORY OF PRESENT ILLNESS: This is a 41-year-old white male with a history of schizoaffective disorder. He reports that his doctor has been reducing his Zoloft. He still complains of some hypersomnia. He likes to stay in bed to avoid any stress here in the environment. He was just started on Abilify. He likes Abilify so far. He thinks it helps it somewhat with his sleep. He is willing to increase the dosage. The patient is seen at the request of the charge nurse as Dr. Baez is not in today. MENTAL STATUS EXAMINATION: Patient is alert, oriented and cooperative. Patient shows signs of a thought disorder. He denies hearing any voices. He does report having racing thoughts. He reports panic attacks at night. No prominent anxiety symptoms. Insight and judgment are fair. He denies being a risk to self or others. Memory functions appear intact. DIAGNOSIS: Schizoaffective disorder. Alcohol use disorder. Marijuana use disorder. PLAN: Increase Abilify to 7.5 mg at bedtime. No changes in other psychotropics. Continue present management.
[2017-01-06 18:00] VITALS: BP 123/66
[2017-01-06] MEDS: VITAMIN D 1,000 INTERNATIONAL UNITS TABLET PO SCH (21:40)
[2017-01-06] MEDS: ARIPiprazole 15 MG TAB (AbiLIFY) PO SCH (21:40)
[2017-01-06] MEDS: hydrOXYzine 50 MG TAB PO SCH (21:41)
[2017-01-06] MEDS: SIMVASTATIN 20 MG TAB PO SCH (21:41)
[2017-01-07] MEDS: traZODone 25MG PER 1/2 TABLET PO SCH ×2 (00:33→23:26)
[2017-01-07 06:56] VITALS: BP 110/56
[2017-01-07] MEDS: SERTRALINE HCL 25 MG TABLET PO SCH (09:03)
[2017-01-07] MEDS: CETIRIZINE (ZyrTEC) 10 MG TAB PO SCH (09:03)
[2017-01-07] MEDS: lamoTRIgine 100MG TAB PO SCH (09:03)
[2017-01-07] MEDS: OMEGA-3 1050MG CAPSULE PO SCH ×2 (09:04→20:11)
[2017-01-07] MEDS: TRIHEXYPHENIDYL 2 MG TAB PO SCH ×2 (09:04→20:13)
[2017-01-07] MEDS: LITHIUM CARBONATE 300 MG **CR** TAB PO SCH ×2 (09:04→20:13)
[2017-01-07] MEDS: THIAMINE 100 MG TAB PO SCH (09:04)
[2017-01-07] MEDS: PRIMIDONE 50 MG TAB PO SCH ×2 (09:04→20:12)
[2017-01-07] MEDS: OMEPRAZOLE 20 MG CAP PO SCH (09:04)
[2017-01-07] MEDS: NICOTINE 21MG/24HR 1 EA TRANSDERMAL TD SCH (09:13)
[2017-01-07] MEDS: LISINOPRIL 10 MG TAB PO SCH (09:13)
[2017-01-07] MEDS: LORazepam 0.5 MG TAB PO PRN (11:46)
[2017-01-07 18:00] VITALS: BP 141/65
[2017-01-07] MEDS: VITAMIN D 1,000 INTERNATIONAL UNITS TABLET PO SCH (20:11)
[2017-01-07] MEDS: hydrOXYzine 50 MG TAB PO SCH (20:12)
[2017-01-07] MEDS: ARIPiprazole 15 MG TAB (AbiLIFY) PO SCH (20:12)
[2017-01-07] MEDS: SIMVASTATIN 20 MG TAB PO SCH (20:12)
[2017-01-08] MEDS: LORazepam 0.5 MG TAB PO PRN (06:48)
[2017-01-08 07:19] VITALS: BP 140/73
[2017-01-08] MEDS: SERTRALINE HCL 25 MG TABLET PO SCH (08:24)
[2017-01-08] MEDS: NICOTINE 21MG/24HR 1 EA TRANSDERMAL TD SCH (08:26)
[2017-01-08] MEDS: OMEPRAZOLE 20 MG CAP PO SCH (08:26)
[2017-01-08] MEDS: lamoTRIgine 100MG TAB PO SCH (08:26)
[2017-01-08] MEDS: LITHIUM CARBONATE 300 MG **CR** TAB PO SCH (08:26)
[2017-01-08 08:27] VITALS: BP 127/64
[2017-01-08] MEDS: CETIRIZINE (ZyrTEC) 10 MG TAB PO SCH (08:27)
[2017-01-08] MEDS: THIAMINE 100 MG TAB PO SCH (08:27)
[2017-01-08] MEDS: LISINOPRIL 10 MG TAB PO SCH (08:27)
[2017-01-08] MEDS: TRIHEXYPHENIDYL 2 MG TAB PO SCH (08:27)
[2017-01-08] MEDS: PRIMIDONE 50 MG TAB PO SCH (08:28)
[2017-01-08] MEDS: OMEGA-3 1050MG CAPSULE PO SCH (08:28)
[2017-01-08] MEDS ORDERED: NICO21PAT TD (10:40)
[2017-01-08] MEDS ORDERED: LITH300T PO (10:40)
[2017-01-08] MEDS ORDERED: TRAZ25TA PO (10:40)
[2017-01-08] MEDS ORDERED: SERT25TA PO (10:40)
[2017-01-08] MEDS ORDERED: ARIP15TAB PO (10:40)
[2017-01-08] MEDS ORDERED: ATIV1TAB10 PO (12:23)
[2017-01-08] MEDS ORDERED: HYDRO50TAB PO (12:23)
--- NOTE | 2017-01-08 21:57 | MHDSPDOC ---
[facility] Discharge Summary Discharge Summary DATE OF ADMISSION: Dec 28, 2016 at 17:03 DATE OF DISCHARGE: Jan 08, 2017 at 16:08 DISCHARGE DIAGNOSES: 1. Schizoaffective Disorder, bipolar type 2. Alcohol use disorder 3. Marijuana Use disorder REASON FOR ADMISSION: was brought to the Emergency room out of concerns from TLS provider who reported patient had been increasingly depressed, had been drinking too much alcohol and had verbalized suicidal ideation, especially when he saw his wrist, he thought about cutting it. He also had reporte command auditory hallucinations. CONSULTANTS INVOLVED: None TREATMENT AND PROGRESS ON THE UNIT : Patient had a good response to medications adjustments, he started lithium 600 mgs PO BID after it wqs noticed his lithium levels were very high, 1.22. He was started on Abilify and he responded well to it. No changes were made to Lamictal 200 mgs. PO QD. For the first week Alfonzo kept exhibiting poor and low energy levels, decreased interest and poor attendance to groups but during the last couple of days he showed improvement in his mood, affect and levels of energy. He admits to have a problem with alcohol and is aware he needs to attend his AA meetings again. He reported today he always was anxious of being in groups and felt afraid of being judged or criticized. For that reason he was discharged on Ativan, only 4 tablets for one week and a refill for the same amount, that he will use if he needs to, when he feels anxious or has panic attacks that were a problem for him last week , especially in the middle of the night. HOSPITAL COURSE: As above DISCHARGE ASSESSMENT: Patient was not in danger to self or others. MENTAL STATUS EXAMINATION ON DISCHARGE: Patient is a 41-year old male, who is alert, cooperative, pleasant with better eye contact and grooming.. Speech is Normal. Language skills are Fair. Thought processes including: Intact. Thought content: Coherent. Abstract reasoning, and computation: Fair. Description of associations: Not loose. Description of abnormal or psychotic thoughts: Not psychotic, not delusional, not homicidal and not suicidal at this time.. Judgment: IMproved. Insight: Improved. Orientation to Oriented x 3. Recent and remote memory: Intact. Attention span and concentration: Fair. Language: Fair. Fund of knowledge: Fair. Mood: "I feel much better". Affect: Congruent to mood. MEDICATIONS ON DISCHARGE: - [place] 600 mgs PO BID for mood stabilization. - Lamotrigine 200 mgs PO for mood stabilization. - Abilify 7.5 mgs PO for psychosis and mood stabilization. - Zoloft 25 mgs. PO QD - Ativan 0.5 mgs PO BID PRN for anxiety PLAN/FOLLOWUP ARRANGEMENTS: Pt. has to follow up with TLS, with the addictions program and will be discharged home to a TLS provider The amount of time spent in the coordination of care for this patient was approximately 40 minutes. Vital Signs/I&Os Vital Signs Date Time Temp Pulse Resp B/P (MAP) Pulse Ox O2 Delivery O2 Flow Rate FiO2 01/08/17 08:27 127/64 01/08/17 07:19 97.1 61 16 01/06/17 08:28 Room Air Medications Scheduled Aripiprazole (Aripiprazole) 15 Mg Tab, 7.5 MG PO QHS for MOOD, #4 tABLETS NEED TO BE SPLIT IN HALF AND TAKE ONE HALF DAILY Calcium Citrate (Calcium Citrate) 250 Mg Tab, 250 MG PO DAILY for SUPPLEMENT, ( Reported) Cetirizine HCl (All Day Allergy) 10 Mg Tab, 10 MG PO DAILY, (Reported) Cholecalciferol (Vitamin D3) 2,000 Unit Tab, 2,000 UNIT PO QHS, (Reported) Disulfiram (Antabuse) 250 Mg Tab, 250 MG PO DAILY, (Reported) Fish Oil (Fish Oil) 1,000 Mg Cap, 1,000 MG PO BID, (Reported) Hydroxyzine HCl (Hydroxyzine HCl) 50 Mg Tab, 50 MG PO QHS for ANXIETY, #7 Lamotrigine (LaMICtal) 100 Mg Tab, 200 MG PO DAILY, (Reported) Lisinopril (Lisinopril) 10 Mg Tab, 10 MG PO DAILY, (Reported) [place] Carbonate ([place] Carbonate ER) 300 Mg Tab, 600 MG PO BID for MOOD, #28 Magnesium Oxide (Magnesium) 500 Mg Cap, 500 MG PO DAILY, (Reported) Nicotine (Nicotine Transdermal Syst) 21 Mg/24 Hr Dis, 1 PATCH TD DAILY for SMOKING CESSATION, #7 Omeprazole (Omeprazole) 40 Mg Cap, 40 MG PO DAILY, (Reported) Primidone (Primidone) 50 Mg Tab, 50 MG PO BID, (Reported) Sertraline Hcl (Sertraline HCl) 25 Mg Tab, 25 MG PO DAILY for MOOD, #7 Simvastatin (Simvastatin) 20 Mg Tab, 20 MG PO QHS, (Reported) Thiamine HCl (Vitamin B1) 100 Mg Tab, 100 MG PO DAILY, (Reported) Trazodone HCl (Trazodone HCl) 50 Mg Tab, 75 MG PO QHS for INSOMNIA, #11 Trihexyphenidyl HCl (Trihexyphenidyl HCl) 5 Mg Tab, 5 MG PO BID, (Reported) Scheduled PRN Lorazepam (Ativan) 0.5 Mg Tab, 0.5 MG PO BIDP PRN for ANXIETY, #4 Allergies Coded Allergies: No Known Allergies (Verified , 12/28/16) CLAIRE SONG MD Jan 08, 2017 21:57
[2017-01-10] MEDS ORDERED: ABIL1TAB12 PO (11:38)
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
[2017-04-19] MEDS ORDERED: OLAN5TAB PO (09:59)
[2017-04-19] MEDS ORDERED: SERT25TA PO (09:59)
[2017-04-19] MEDS ORDERED: ARIP10TAB PO (09:59)
[2017-04-19] MEDS ORDERED: ATIV1TAB7 PO (09:59)
[2017-04-19] MEDS ORDERED: TRAZO50TA PO (09:59)
[2017-04-19] MEDS ORDERED: PRIM125TAB PO (09:59)
[2017-04-19] MEDS ORDERED: NICO21PAT TD (09:59)
[2017-04-19] MEDS ORDERED: ABIL400I IM (10:04)
== END 2017-01-08 16:08 | disposition home or self-care (01) | DRG 750 ==
LOC: M ED 13:09 → M ED INP 17:03 → M PSY 20:13
PROVIDERS: ADMIT Psychiatry & Neurology Psychiatry; ATTEND Psychiatry & Neurology Psychiatry
DX: F25.0 Schizoaffective disorder, bipolar type (principal); G20 Parkinson's disease; E87.1 Hypo-osmolality and hyponatremia; F17.200 Nicotine dependence, unspecified, uncomplicated; F12.90 Cannabis use, unspecified, uncomplicated; Z79.899 Other long term (current) drug therapy; K21.9 Gastro-esophageal reflux disease without esophagitis; I10 Essential (primary) hypertension; E78.5 Hyperlipidemia, unspecified; F41.9 Anxiety disorder, unspecified

== ENCOUNTER → 2017-01-16 | Outpatient (REF) | payer OTHER ==
[~2017-01-16] MED LIST changes: +ABIL1TAB12 PO; +ABIL400I IM; +ALL10TAB27 PO; +ANTA250T PO; +ARIP10TAB PO; +ARIP15TAB PO; +ATIV1TAB10 PO; +ATIV1TAB7 PO; +CALC250T PO; +CALC950T PO; +FISH1000 PO; +HYDRO50TAB PO; +LAMO10TA PO; +LISI10TA4 PO; +LITH300C PO; +LITH300T PO; +MAGN500C PO; +NICO21PAT TD; +OLAN5TAB PO; +PRIM125TAB PO; +PRIM250T8 PO; +PRIM50TA6 PO; +REXU1TAB6 PO; +SERT25TA PO; +SIMV20TA2 PO; +TRAZ25TA PO; +TRAZO50TA PO; +TRIH0.4E PO; +TRIH5TAB PO; +VITA100T60 PO; +VITA20008 PO
[2017-01-16 13:35] LABS: ANION GAP 10 MEQ/L (8-16); BLOOD UREA NITROGEN 10 MG/DL (7-18); CALCIUM LEVEL 9.4 MG/DL (8.5-10.1); CARBON DIOXIDE LEVEL 24 MEQ/L (21-32); CHLORIDE LEVEL 106 MEQ/L (98-107); CHOLESTEROL LEVEL 139 MG/DL (<200); CREATININE FOR GFR 1.07 MG/DL (0.70-1.30); GLOMERULAR FILTRATION RATE > 60.0 (>60); GLUCOSE, FASTING 92 MG/DL (70-105); POTASSIUM SERUM 4.6 MEQ/L (3.5-5.1); SODIUM LEVEL 140 MEQ/L (136-145); TRIGLYCERIDES LEVEL 53 MG/DL (<150)
== END ==
LOC: M LAB REF 12:26
PROVIDERS: ATTEND Nurse Practitioner Family
DX: E78.00 Pure hypercholesterolemia, unspecified (principal); E55.9 Vitamin D deficiency, unspecified

== ENCOUNTER → 2017-03-06 | Outpatient (REF) | payer OTHER ==
[2017-03-06 14:41] LABS: PROLACTIN 5.7 NG/ML (2.1-17.7)
== END ==
LOC: M LAB REF 14:07
PROVIDERS: ATTEND Nurse Practitioner Family
DX: N52.9 Male erectile dysfunction, unspecified (principal)

== ENCOUNTER 2017-03-25 19:52 | Emergency (ER) | payer OTHER ==
[~2017-03-25] VITALS: Ht 193 cm; Wt 86.4 kg
[~2017-03-25 19:52] MED LIST changes: -ABIL400I IM; -ARIP10TAB PO; -ATIV1TAB7 PO; -OLAN5TAB PO; -PRIM125TAB PO; -TRAZO50TA PO
[2017-03-25 22:02] LABS: MEAN CORPUSCULAR HEMOGLOBIN 29.5 pg (27.0-33.0); MEAN CORPUSCULAR HGB CONC 32.1 g/dl (32.0-36.5); RED CELL DISTRIBUTION WIDTH 12.9 % (11.5-14.5)
[2017-03-25 22:43] LABS: ALBUMIN 3.8 GM/DL (3.2-5.2); ALBUMIN/GLOBULIN RATIO 1.19 (1.00-1.93); ALKALINE PHOSPHATASE 70 U/L (45-117); ALT/SGPT 23 U/L (12-78); ANION GAP 5 MEQ/L (8-16); AST/SGOT 12 U/L (15-37); BILIRUBIN,DIRECT < 0.1 MG/DL (0.0-0.2); BILIRUBIN,TOTAL 0.2 MG/DL (0.2-1.0); BLOOD UREA NITROGEN 8 MG/DL (7-18); CALCIUM LEVEL 8.9 MG/DL (8.5-10.1); CARBON DIOXIDE LEVEL 29 MEQ/L (21-32); CHLORIDE LEVEL 106 MEQ/L (98-107); CREATININE FOR GFR 0.95 MG/DL (0.70-1.30); GLOMERULAR FILTRATION RATE > 60.0 (>60); GLUCOSE, FASTING 99 MG/DL (70-105); POTASSIUM SERUM 4.1 MEQ/L (3.5-5.1); SODIUM LEVEL 140 MEQ/L (136-145)
[2017-03-25 23:17] LABS: METHADONE URINE NEGATIVE (NEGATIVE)
[2017-03-26 04:00] VITALS: BP 114/70
--- NOTE | 2017-03-26 09:16 | ECGEPIP ---
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
[2017-04-19] MEDS ORDERED: PRIM125TAB PO (09:59)
[2017-04-19] MEDS ORDERED: OLAN5TAB PO (09:59)
[2017-04-19] MEDS ORDERED: NICO21PAT TD (09:59)
[2017-04-19] MEDS ORDERED: TRAZO50TA PO (09:59)
[2017-04-19] MEDS ORDERED: ARIP10TAB PO (09:59)
[2017-04-19] MEDS ORDERED: ATIV1TAB7 PO (09:59)
[2017-04-19] MEDS ORDERED: SERT25TA PO (09:59)
[2017-04-19] MEDS ORDERED: ABIL400I IM (10:04)
== END 2017-03-26 04:13 | disposition home or self-care (01) ==
LOC: M ED 19:52
DX: F43.0 Acute stress reaction (principal); T43.211A Poisoning by selective serotonin and norepinephrine reuptake inhibitors, accidental (unintentional), initial encounter; Y92.9 Unspecified place or not applicable; Y93.9 Activity, unspecified; F20.9 Schizophrenia, unspecified; F17.200 Nicotine dependence, unspecified, uncomplicated; F10.10 Alcohol abuse, uncomplicated; F12.10 Cannabis abuse, uncomplicated; Z79.899 Other long term (current) drug therapy

== ENCOUNTER → 2017-05-24 | Outpatient (CLI) | payer MEDICAID ==
[~2017-05-24] MED LIST changes: +ABIL400I IM; +ARIP10TAB PO; +ATIV1TAB7 PO; +OLAN5TAB PO; +PRIM125TAB PO; +TRAZO50TA PO
== END ==
LOC: M OUTALCOH 08:21
PROVIDERS: ATTEND Psychiatry & Neurology Psychiatry
DX: F10.20 Alcohol dependence, uncomplicated (principal); F12.20 Cannabis dependence, uncomplicated

== ENCOUNTER 2017-06-04 11:17 | Outpatient (RCR) | payer MEDICAID | END 2017-06-17 | LOC: M OUTALCOH 06-14 09:00 | DX: F10.20 Alcohol dependence, uncomplicated (principal); F12.20 Cannabis dependence, uncomplicated; F17.200 Nicotine dependence, unspecified, uncomplicated ==

== ENCOUNTER 2017-06-20 14:26 | Outpatient (RCR) | payer MEDICAID | END 2017-07-18 | LOC: M OUTALCOH 14:26 | DX: F10.20 Alcohol dependence, uncomplicated (principal); F12.20 Cannabis dependence, uncomplicated; F17.200 Nicotine dependence, unspecified, uncomplicated ==

== ENCOUNTER → 2017-06-25 | Outpatient (REF) | payer OTHER ==
[2017-06-25 13:35] LABS: ALBUMIN 3.6 GM/DL (3.2-5.2); ALBUMIN/GLOBULIN RATIO 1.16 (1.00-1.93); ALKALINE PHOSPHATASE 116 U/L (45-117); ALT/SGPT 27 U/L (12-78); ANION GAP 8 MEQ/L (8-16); AST/SGOT 12 U/L (7-37); BILIRUBIN,TOTAL 0.2 MG/DL (0.2-1.0); BLOOD UREA NITROGEN 22 MG/DL (7-18); CALCIUM LEVEL 8.5 MG/DL (8.5-10.1); CARBON DIOXIDE LEVEL 25 MEQ/L (21-32); CHLORIDE LEVEL 107 MEQ/L (98-107); CHOLESTEROL LEVEL 205 MG/DL (<200); CHOLESTEROL RISK RATIO 3.416 (<5); CREATININE FOR GFR 0.84 MG/DL (0.70-1.30); GLOMERULAR FILTRATION RATE > 60.0 (>60); GLUCOSE, FASTING 132 MG/DL (70-105); HDL CHOLESTEROL 60 MG/DL (>40); LDL CHOLESTEROL 123.6 MG/DL (<100); NON-HDL-C 145 MG/DL; POTASSIUM SERUM 4.5 MEQ/L (3.5-5.1); SODIUM LEVEL 140 MEQ/L (136-145); TOTAL PROTEIN 6.7 GM/DL (6.4-8.2); TRIGLYCERIDES LEVEL 107 MG/DL (<150)
== END ==
LOC: M LAB REF 12:03
DX: I10 Essential (primary) hypertension (principal)

== ENCOUNTER 2017-07-19 09:46 | Outpatient (RCR) | payer MEDICAID | END 2017-08-15 | LOC: M OUTALCOH 09:46 | DX: F10.20 Alcohol dependence, uncomplicated (principal); F12.20 Cannabis dependence, uncomplicated; F17.200 Nicotine dependence, unspecified, uncomplicated ==

== ENCOUNTER 2017-08-16 14:04 | Outpatient (RCR) | payer MEDICAID | END 2017-09-15 | LOC: M OUTALCOH 08-20 15:00 | DX: F10.20 Alcohol dependence, uncomplicated (principal); F12.20 Cannabis dependence, uncomplicated; F17.200 Nicotine dependence, unspecified, uncomplicated ==

== ENCOUNTER 2017-09-17 09:54 | Outpatient (RCR) | payer MEDICAID | END 2017-10-15 | LOC: M OUTALCOH 09-20 11:00 | DX: F10.20 Alcohol dependence, uncomplicated (principal); F12.20 Cannabis dependence, uncomplicated; F17.200 Nicotine dependence, unspecified, uncomplicated ==

== ENCOUNTER → 2017-10-23 | Outpatient (REF) | payer MEDICAID ==
[2017-10-23 18:23] LABS: ESTIMATED AVERAGE GLUCOSE 111 MG/DL (60-110); HEMOGLOBIN A1c 5.5 %
[2017-10-23 18:31] LABS: TOTAL 25(OH) VITAMIN D 21.7 NG/ML (30.0-100.0)
== END ==
LOC: M LAB REF 16:33
DX: E55.9 Vitamin D deficiency, unspecified (principal); D64.9 Anemia, unspecified

== ENCOUNTER 2017-11-01 15:23 | Outpatient (RCR) | payer MEDICAID | END 2017-11-15 | LOC: M OUTALCOH 11-15 08:00 | DX: F12.20 Cannabis dependence, uncomplicated (principal) ==

== ENCOUNTER 2017-12-24 11:27 | Outpatient (RCR) | payer MEDICAID | END 2018-01-15 | LOC: M OUTALCOH 11:27 | DX: F12.20 Cannabis dependence, uncomplicated (principal) ==

== ENCOUNTER → 2018-01-17 | Outpatient (REF) | payer MEDICAID ==
[2018-01-17 13:04] LABS: CHOLESTEROL LEVEL 215 MG/DL (<200); CHOLESTEROL RISK RATIO 3.839 (<5); HDL CHOLESTEROL 56 MG/DL (>40); LDL CHOLESTEROL 136.6 MG/DL (<100); NON-HDL-C 159 MG/DL; TRIGLYCERIDES LEVEL 112 MG/DL (<150)
[2018-01-17 13:14] LABS: TOTAL 25(OH) VITAMIN D 39.5 NG/ML (30.0-100.0)
[2018-01-17 14:13] LABS: ESTIMATED AVERAGE GLUCOSE 103 MG/DL (60-110); HEMOGLOBIN A1c 5.2 %
== END ==
LOC: M LAB REF 12:03
DX: F25.0 Schizoaffective disorder, bipolar type (principal)
CPT/HCPCS: 83036

== ENCOUNTER 2018-03-04 09:33 | Outpatient (RCR) | payer MEDICAID | END 2018-03-17 | LOC: M OUTALCOH 09:33 | DX: F12.20 Cannabis dependence, uncomplicated (principal) ==

== ENCOUNTER → 2018-04-23 | Outpatient (REF) | payer MEDICAID ==
[2018-04-23 19:52] LABS: BASO # 0.1 10^3/uL (0.0-0.2); EOS # 0.1 10^3/uL (0.0-0.50); EOS % 0.7 % (0.0-3.0); HEMATOCRIT 40.8 % (42.0-52.0); HEMOGLOBIN 13.7 g/dl (13.5-17.5); IMMATURE GRANULOCYTE % 0.3 % (0-3.0); LYMPH # 2.7 10^3/uL (1.5-4.5); LYMPH % 37.1 % (24.0-44.0); MEAN CORPUSCULAR HEMOGLOBIN 29.5 pg (27.0-33.0); MEAN CORPUSCULAR HGB CONC 33.6 g/dl (32.0-36.5); MEAN CORPUSCULAR VOLUME 87.7 fl (80.0-96.0); MONO # 0.6 10^3/uL (0.0-0.8); MONO % 7.7 % (0.0-5.0); NEUTROPHILS # 3.9 10^3/uL (1.8-7.7); NEUTROPHILS % 53.2 % (36.0-66.0); PLATELET COUNT, AUTOMATED 305 10^3/uL (150-450); RED BLOOD COUNT 4.65 10^6/uL (4.30-6.10); WHITE BLOOD COUNT 7.3 10^3/uL (4.0-10.0)
== END ==
LOC: M LAB REF 17:24
DX: D64.9 Anemia, unspecified (principal)
CPT/HCPCS: 85025

== ENCOUNTER 2018-04-26 15:26 | Outpatient (RCR) | payer MEDICAID | END 2018-05-17 | LOC: M OUTALCOH 15:26 | DX: F12.20 Cannabis dependence, uncomplicated (principal) ==

== ENCOUNTER 2018-06-21 12:36 | Outpatient (RCR) | payer MEDICAID ==
[~2018-06-21 12:36] MED LIST changes: -ALL10TAB27 PO; +ALL10TAB28 PO
== END 2018-07-18 ==
LOC: M OUTALCOH 12:36
PROVIDERS: ATTEND Psychiatry & Neurology Psychiatry
DX: F12.20 Cannabis dependence, uncomplicated (principal)

== ENCOUNTER → 2018-07-04 | Outpatient (REF) | payer MEDICAID, OTHER | LOC: M SFHCPLAZ 17:49 | PROVIDERS: ATTEND Dermatology | DX: D22.30 Melanocytic nevi of unspecified part of face (principal); D22.5 Melanocytic nevi of trunk ==

== ENCOUNTER 2018-07-29 08:03 | Outpatient (RCR) | payer MEDICAID | END 2018-08-15 | LOC: M OUTALCOH 08:03 | PROVIDERS: ATTEND Psychiatry & Neurology Psychiatry | DX: F12.20 Cannabis dependence, uncomplicated (principal) ==

== ENCOUNTER → 2018-08-06 | Outpatient (REF) | payer MEDICAID ==
[2018-08-06 20:08] LABS: APPEARANCE, URINE CLEAR (CLEAR); BACTERIA, URINE AUTO NEGATIVE (NEGATIVE); BILIRUBIN, URINE AUTO NEGATIVE (NEGATIVE); BLOOD, URINE BLOOD NEGATIVE (NEGATIVE); COLOR, URINE YELLOW (YELLOW); GLUCOSE, URINE (UA) AUTO NEGATIVE (NEGATIVE); KETONE, URINE AUTO NEGATIVE (NEGATIVE); LEUKOCYTE ESTERASE, URINE AUTO NEGATIVE (NEGATIVE); MUCUS, URINE SMALL (NEGATIVE); NITRITE, URINE AUTO NEGATIVE (NEGATIVE); PROTEIN, URINE AUTO NEGATIVE (NEGATIVE); RBC, URINE AUTO 0 /HPF (0-3); SPECIFIC GRAVITY URINE AUTO 1.014 (1.002-1.035); SQUAMOUS EPITHELIAL CELL UR AU 0 /HPF (0-6); UROBILINOGEN, URINE AUTO 0.2 mg/dL (0.0-2.0); WBC, URINE AUTO 2 /HPF (0-3)
[2018-08-06 20:21] LABS: ALBUMIN 4.3 GM/DL (3.2-5.2); ALT/SGPT 32 U/L (12-78); BILIRUBIN,TOTAL 0.3 MG/DL (0.2-1.0); BLOOD UREA NITROGEN 10 MG/DL (7-18); CARBON DIOXIDE LEVEL 26 MEQ/L (21-32); CHLORIDE LEVEL 106 MEQ/L (98-107); CHOLESTEROL LEVEL 238 MG/DL (<200); CHOLESTEROL RISK RATIO 4.033 (<5); CREATININE FOR GFR 0.96 MG/DL (0.70-1.30); GLOMERULAR FILTRATION RATE > 60.0 (>60); GLUCOSE, FASTING 103 MG/DL (70-100); HDL CHOLESTEROL 59 MG/DL (>40); LDL CHOLESTEROL 164 MG/DL (<100); NON-HDL-C 179 MG/DL; POTASSIUM SERUM 4.3 MEQ/L (3.5-5.1); SODIUM LEVEL 138 MEQ/L (136-145); TOTAL 25(OH) VITAMIN D 27.8 NG/ML (30.0-100.0); TOTAL PROTEIN 7.8 GM/DL (6.4-8.2); TRIGLYCERIDES LEVEL 76 MG/DL (<150)
[2018-08-06 20:22] LABS: HEMOGLOBIN A1c 5.7 %
[2018-08-06 20:44] LABS: BASO # 0.1 10^3/uL (0.0-0.2); BASO % 0.8 % (0.0-1.0); EOS # 0.1 10^3/uL (0.0-0.50); EOS % 2.1 % (0.0-3.0); HEMATOCRIT 41.8 % (42.0-52.0); HEMOGLOBIN 14.2 g/dl (13.5-17.5); LYMPH # 2.1 10^3/uL (1.5-4.5); MEAN CORPUSCULAR VOLUME 88.2 fl (80.0-96.0); MONO # 0.5 10^3/uL (0.0-0.8); NEUTROPHILS # 3.5 10^3/uL (1.8-7.7); NEUTROPHILS % 55.8 % (36.0-66.0); PLATELET COUNT, AUTOMATED 294 10^3/uL (150-450); RED BLOOD COUNT 4.74 10^6/uL (4.30-6.10); WHITE BLOOD COUNT 6.3 10^3/uL (4.0-10.0)
[2018-08-09 00:09] LABS: TESTOSTERONE FREE (DIRECT) 7.8 pg/mL (6.8-21.5)
== END ==
LOC: M LAB REF 17:18
PROVIDERS: ATTEND Nurse Practitioner Family
DX: N52.9 Male erectile dysfunction, unspecified (principal); Z13.9 Encounter for screening, unspecified; E78.5 Hyperlipidemia, unspecified

== ENCOUNTER 2018-10-21 16:42 | Emergency (ER) | payer MEDICAID, OTHER ==
[~2018-10-21] VITALS: Ht 182.9 cm; Wt 94.9 kg
[~2018-10-21 16:42] MED LIST changes: -ARIP10TAB PO; -ARIP15TAB PO; +ARIP1TAB PO; +ARIP1TAB10 PO; +LAMO100T80 PO; -LAMO10TA PO; -SERT25TA PO; +SERT25TA85 PO
[2018-10-21] MEDS ORDERED: GUAN2TAB PO (17:30)
[2018-10-21] MEDS ORDERED: BUPR10TASR PO (17:30)
[2018-10-21] MEDS ORDERED: TEMA15CA2 PO (17:30)
[2018-10-21 18:14] LABS: BASO # 0.1 10^3/uL (0.0-0.2); BASO % 0.7 % (0.0-1.0); EOS # 0.1 10^3/uL (0.0-0.50); EOS % 0.6 % (0.0-3.0); HEMATOCRIT 43.1 % (42.0-52.0); LYMPH # 1.4 10^3/uL (1.5-4.5); MEAN CORPUSCULAR HEMOGLOBIN 30.2 pg (27.0-33.0); MEAN CORPUSCULAR HGB CONC 34.8 g/dl (32.0-36.5); MEAN CORPUSCULAR VOLUME 86.9 fl (80.0-96.0); MONO # 0.7 10^3/uL (0.0-0.8); MONO % 7.5 % (0.0-5.0); NEUTROPHILS # 6.5 10^3/uL (1.8-7.7); NEUTROPHILS % 74.7 % (36.0-66.0); PLATELET COUNT, AUTOMATED 312 10^3/uL (150-450); RED BLOOD COUNT 4.96 10^6/uL (4.30-6.10); WHITE BLOOD COUNT 8.6 10^3/uL (4.0-10.0)
[2018-10-21] MEDS ORDERED: NS 500 ML IV ONE (18:15)
[2018-10-21 18:33] LABS: ALBUMIN 3.8 GM/DL (3.2-5.2); ALT/SGPT 27 U/L (12-78); BILIRUBIN,DIRECT 0.1 MG/DL (0.0-0.2); BILIRUBIN,TOTAL 0.3 MG/DL (0.2-1.0); BLOOD UREA NITROGEN 18 MG/DL (7-18); CALCIUM LEVEL 8.7 MG/DL (8.5-10.1); CARBON DIOXIDE LEVEL 27 MEQ/L (21-32); CHLORIDE LEVEL 105 MEQ/L (98-107); CPK CREATINE PHOSPHOKINASE 82 U/L (39-308); CREATININE FOR GFR 1.12 MG/DL (0.70-1.30); GLOMERULAR FILTRATION RATE > 60.0 (>60); GLUCOSE, FASTING 88 MG/DL (70-100); MB/CK RELATIVE INDEX 1.59 (< OR =4); POTASSIUM SERUM 4.2 MEQ/L (3.5-5.1); SODIUM LEVEL 139 MEQ/L (136-145); TOTAL PROTEIN 7.6 GM/DL (6.4-8.2); TROPONIN I < 0.02 NG/ML (< 0.10)
--- NOTE | 2018-10-21 18:45 | REP ---
REASON: Altered mental status. FINDINGS: The superior mediastinal structures are midline. The cardiac silhouette is unremarkable in size, shape, and position. The diaphragmatic surfaces of the lungs are regular, and the costophrenic angles are clear. The pulmonary montilla are clear. The imaged osseous structures are intact. IMPRESSION: There is no acute cardiopulmonary disease. Electronically Signed by Manolo Cardenas DO 10/21/2018 06:50 P
[2018-10-21 19:04] LABS: APPEARANCE, URINE CLEAR (CLEAR); BACTERIA, URINE AUTO NEGATIVE (NEGATIVE); BILIRUBIN, URINE AUTO NEGATIVE (NEGATIVE); BLOOD, URINE BLOOD NEGATIVE (NEGATIVE); COLOR, URINE YELLOW (YELLOW); GLUCOSE, URINE (UA) AUTO NEGATIVE (NEGATIVE); KETONE, URINE AUTO TRACE mg/dL (NEGATIVE); LEUKOCYTE ESTERASE, URINE AUTO NEGATIVE (NEGATIVE); NITRITE, URINE AUTO NEGATIVE (NEGATIVE); PROTEIN, URINE AUTO NEGATIVE (NEGATIVE); RBC, URINE AUTO 0 /HPF (0-3); SPECIFIC GRAVITY URINE AUTO 1.008 (1.002-1.035); SQUAMOUS EPITHELIAL CELL UR AU 0 /HPF (0-6); UROBILINOGEN, URINE AUTO 0.2 mg/dL (0.0-2.0); WBC, URINE AUTO 0 /HPF (0-3)
--- NOTE | 2018-10-21 19:04 | REPVR ---
EXAM: CT Head Without Contrast EXAM DATE/TIME: 10/21/2018 6:06 PM CLINICAL HISTORY: 43 years old, male; Signs and symptoms; Altered mental status/memory loss; Confusion or disorientation TECHNIQUE: Imaging protocol: Axial computed tomography images of the head/brain without contrast. Radiation optimization: All CT scans at this facility use at least one of these dose optimization techniques: automated exposure control; mA and/or kV adjustment per patient size (includes targeted exams where dose is matched to clinical indication); or iterative reconstruction. COMPARISON: CT Head without contrast 11/22/2012 4:27 PM FINDINGS: Brain: There is no evidence of intracranial bleed. The wooten-white differentiation appears preserved. Ventricles: Normal appearing ventricles. Bones/joints: There is no evidence of fracture. Sinuses: Clear paranasal sinuses. Mastoid air cells: Clear mastoid air cells. Soft tissues: Unremarkable. IMPRESSION: 1. No evidence of bleed. 2. No evidence of mass effect. Electronically signed by: Joey Pepper On 10/21/2018 19:03:55 PM
[2018-10-21 19:17] LABS: AMPHETAMINES LEVEL URINE POSITIVE (NEGATIVE); BARBITURATES URINE POSITIVE (NEGATIVE); BENZODIAZEPINES URINE NEGATIVE (NEGATIVE); CANNABINOIDS URINE NEGATIVE (NEGATIVE); COCAINE METABOLITE URINE NEGATIVE (NEGATIVE); METHADONE URINE NEGATIVE (NEGATIVE); OPIATES URINE NEGATIVE (NEGATIVE); PHENCYCLIDINE URINE NEGATIVE (NEGATIVE)
[2018-10-21 19:45] VITALS: BP 120/88
--- NOTE | 2018-10-21 22:16 | ECGEPIP ---
Stationary ECG Study 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
== END 2018-10-21 20:07 | disposition home or self-care (01) ==
LOC: M ED 16:42
DX: I95.1 Orthostatic hypotension (principal); F31.9 Bipolar disorder, unspecified; F17.210 Nicotine dependence, cigarettes, uncomplicated; Z79.899 Other long term (current) drug therapy

== ENCOUNTER 2018-11-01 15:57 | Outpatient (RCR) | payer MEDICAID ==
[~2018-11-01 15:57] MED LIST changes: +BUPR10TASR PO; +GUAN2TAB PO; +TEMA15CA2 PO
== END 2018-11-15 ==
LOC: M OUTALCOH 15:57
PROVIDERS: ATTEND Psychiatry & Neurology Psychiatry
DX: F12.20 Cannabis dependence, uncomplicated (principal)

== ENCOUNTER 2018-12-10 14:02 | Outpatient (RCR) | payer MEDICAID ==
[~2018-12-10 14:02] MED LIST changes: +TRAZ1TAB10 PO; +TRAZ1TAB11 PO; -TRAZ25TA PO; -TRAZO50TA PO
== END 2018-12-15 ==
LOC: M OUTALCOH 14:02
PROVIDERS: ATTEND Psychiatry & Neurology Psychiatry
DX: F12.20 Cannabis dependence, uncomplicated (principal)

== ENCOUNTER → 2019-04-17 | Outpatient (REF) | payer MEDICAID ==
[~2019-04-17] MED LIST changes: -ALL10TAB28 PO; +ALL10TAB29 PO; +HYDR1TAB33 PO; -HYDRO50TAB PO; +OMEP40CA97 PO
[2019-04-17 13:09] LABS: BASO # 0.1 10^3/uL (0.0-0.2); EOS # 0.1 10^3/uL (0.0-0.5); EOS % 1.4 % (0.0-3.0); HEMATOCRIT 41.1 % (42.0-52.0); HEMOGLOBIN 13.6 g/dl (13.5-17.5); LYMPH # 1.8 10^3/uL (1.5-5.0); LYMPH % 28.8 % (24.0-44.0); MEAN CORPUSCULAR HEMOGLOBIN 30.2 pg (27.0-33.0); MEAN CORPUSCULAR HGB CONC 33.1 g/dl (32.0-36.5); MEAN CORPUSCULAR VOLUME 91.3 fl (80.0-96.0); MONO # 0.6 10^3/uL (0.0-0.8); MONO % 10.2 % (0.0-5.0); NEUTROPHILS # 3.6 10^3/uL (1.5-8.5); NEUTROPHILS % 58.3 % (36.0-66.0); PLATELET COUNT, AUTOMATED 294 10^3/uL (150-450); WHITE BLOOD COUNT 6.3 10^3/uL (4.0-10.0)
[2019-04-17 13:15] LABS: ALBUMIN 4.2 GM/DL (3.2-5.2); ALT/SGPT 24 U/L (12-78); BILIRUBIN,TOTAL 0.2 MG/DL (0.2-1.0); BLOOD UREA NITROGEN 15 MG/DL (7-18); CALCIUM LEVEL 9.4 MG/DL (8.5-10.1); CARBON DIOXIDE LEVEL 26 MEQ/L (21-32); CHLORIDE LEVEL 108 MEQ/L (98-107); CHOLESTEROL LEVEL 192 MG/DL (<200); CREATININE FOR GFR 1.06 MG/DL (0.70-1.30); FREE T4 0.88 NG/DL (0.76-1.46); GLOMERULAR FILTRATION RATE > 60.0 (>60); GLUCOSE, FASTING 108 MG/DL (70-100); HDL CHOLESTEROL 64 MG/DL (>40); LDL CHOLESTEROL 113 MG/DL (<100); NON-HDL-C 128 MG/DL; POTASSIUM SERUM 4.3 MEQ/L (3.5-5.1); SODIUM LEVEL 140 MEQ/L (136-145); TOTAL PROTEIN 7.3 GM/DL (6.4-8.2); TRIGLYCERIDES LEVEL 73 MG/DL (<150)
[2019-04-17 13:25] LABS: HEMOGLOBIN A1c 5.3 %
== END ==
LOC: M LAB REF 12:10
PROVIDERS: ATTEND Nurse Practitioner Family
DX: Z13.9 Encounter for screening, unspecified (principal); I10 Essential (primary) hypertension; E78.5 Hyperlipidemia, unspecified

== ENCOUNTER → 2019-10-29 | Outpatient (REF) | payer MEDICAID ==
[~2019-10-29] MED LIST changes: -SIMV20TA2 PO; +SIMV20TA22 PO
[2019-10-29 12:45] LABS: BASO # 0.1 10^3/uL (0.0-0.2); BASO % 0.8 % (0.0-1.0); EOS # 0.2 10^3/uL (0.0-0.5); EOS % 2.1 % (0.0-3.0); HEMATOCRIT 43.9 % (42.0-52.0); HEMOGLOBIN 14.5 g/dl (13.5-17.5); LYMPH # 1.7 10^3/uL (1.5-5.0); LYMPH % 24.2 % (24.0-44.0); MEAN CORPUSCULAR HEMOGLOBIN 30.7 pg (27.0-33.0); MEAN CORPUSCULAR VOLUME 92.8 fl (80.0-96.0); MONO # 0.9 10^3/uL (0.0-0.8); NEUTROPHILS # 4.3 10^3/uL (1.5-8.5); NEUTROPHILS % 60.8 % (36.0-66.0); PLATELET COUNT, AUTOMATED 317 10^3/uL (150-450); RED BLOOD COUNT 4.73 10^6/uL (4.30-6.10); WHITE BLOOD COUNT 7.1 10^3/uL (4.0-10.0)
[2019-10-29 13:00] LABS: ALBUMIN 4.4 GM/DL (3.2-5.2); ALT/SGPT 28 U/L (12-78); BILIRUBIN,TOTAL 0.2 MG/DL (0.2-1.0); BLOOD UREA NITROGEN 23 MG/DL (7-18); CALCIUM LEVEL 9.5 MG/DL (8.5-10.1); CARBON DIOXIDE LEVEL 28 MEQ/L (21-32); CHLORIDE LEVEL 105 MEQ/L (98-107); CHOLESTEROL LEVEL 212 MG/DL (<200); CHOLESTEROL RISK RATIO 3.475 (<5); CREATININE FOR GFR 1.12 MG/DL (0.70-1.30); FREE T4 1.39 NG/DL (0.76-1.46); GLOMERULAR FILTRATION RATE > 60.0 (>60); GLUCOSE, FASTING 103 MG/DL (70-100); HDL CHOLESTEROL 61 MG/DL (>40); LDL CHOLESTEROL 122 MG/DL (<100); NON-HDL-C 151 MG/DL; POTASSIUM SERUM 4.4 MEQ/L (3.5-5.1); SODIUM LEVEL 138 MEQ/L (136-145); TOTAL 25(OH) VITAMIN D 28.7 NG/ML (30.0-100.0); TOTAL PROTEIN 7.6 GM/DL (6.4-8.2); TRIGLYCERIDES LEVEL 147 MG/DL (<150)
[2019-10-29 14:18] LABS: HEMOGLOBIN A1c 5.5 %
== END ==
LOC: M LAB REF 12:14
PROVIDERS: ATTEND Nurse Practitioner Family
DX: Z00.01 Encounter for general adult medical examination with abnormal findings (principal); F41.8 Other specified anxiety disorders; Z13.9 Encounter for screening, unspecified; D64.9 Anemia, unspecified; E78.5 Hyperlipidemia, unspecified; I10 Essential (primary) hypertension; E66.3 Overweight

== ENCOUNTER → 2021-09-07 | Outpatient (CLI) | payer OTHER, MEDICAID ==
[~2021-09-07] MED LIST changes: -ALL10TAB29 PO; +CETI-24 PO; +LISI10TA22 PO; -LISI10TA4 PO; +OLAN1TAB16 PO; -OLAN5TAB PO; +OMEP40CA4 PO; -OMEP40CA97 PO
[2021-09-07 13:34] LABS: BASO % 0.7 % (0.0-1.0); EOS # 0.1 10^3/uL (0.0-0.5); EOS % 1.5 % (0.0-3.0); HEMATOCRIT 42.3 % (42.0-52.0); HEMOGLOBIN 14.1 g/dl (13.5-17.5); LYMPH # 1.5 10^3/uL (1.5-5.0); MEAN CORPUSCULAR HEMOGLOBIN 29.4 pg (27.0-33.0); MEAN CORPUSCULAR HGB CONC 33.3 g/dl (32.0-36.5); MEAN CORPUSCULAR VOLUME 88.1 fl (80.0-96.0); MONO # 0.6 10^3/uL (0.0-0.8); MONO % 9.8 % (2.0-8.0); NEUTROPHILS # 3.6 10^3/uL (1.5-8.5); NEUTROPHILS % 61.7 % (36.0-66.0); PLATELET COUNT, AUTOMATED 272 10^3/uL (150-450); WHITE BLOOD COUNT 5.8 10^3/uL (4.0-10.0)
[2021-09-07 14:09] LABS: ALT/SGPT 31 U/L (12-78); BILIRUBIN,TOTAL 0.2 MG/DL (0.2-1.0); BLOOD UREA NITROGEN 19 MG/DL (7-18); CALCIUM LEVEL 9.5 MG/DL (8.5-10.1); CARBON DIOXIDE LEVEL 32 MEQ/L (21-32); CHLORIDE LEVEL 104 MEQ/L (98-107); CREATININE FOR GFR 0.84 MG/DL (0.70-1.30); GLOMERULAR FILTRATION RATE > 60.0 (>60); GLUCOSE, FASTING 106 MG/DL (70-100); POTASSIUM SERUM 4.8 MEQ/L (3.5-5.1); SODIUM LEVEL 138 MEQ/L (136-145); TOTAL PROTEIN 7.5 GM/DL (6.4-8.2)
== END ==
LOC: M LAB 12:52
PROVIDERS: ATTEND Psychiatry & Neurology Neurology
DX: G25.0 Essential tremor (principal)

== ENCOUNTER → 2022-08-28 | Outpatient (REF) | payer MEDICAID, OTHER ==
[2022-08-28 15:40] LABS: CHOLESTEROL RISK RATIO 3.46 (<5); HDL CHOLESTEROL 64.9 MG/DL (>40); LDL CHOLESTEROL 141.5 MG/DL (<100); NON-HDL-C 160.1 MG/DL
== END ==
LOC: M LAB REF 11:57
PROVIDERS: ATTEND Nurse Practitioner Family
DX: R79.89 Other specified abnormal findings of blood chemistry (principal)

== ENCOUNTER 2022-10-05 17:29 | Inpatient (IN) | payer OTHER ==
[~2022-10-05] VITALS: Ht 182.9 cm; Wt 90.9 kg
[2022-10-05 18:26] LABS: HEMATOCRIT 45.2 % (42.0-52.0); HEMOGLOBIN 15.4 g/dl (13.5-17.5); MEAN CORPUSCULAR HEMOGLOBIN 30.5 pg (27.0-33.0); MEAN CORPUSCULAR HGB CONC 34.1 g/dl (32.0-36.5); MEAN CORPUSCULAR VOLUME 89.5 fl (80.0-96.0); PLATELET COUNT, AUTOMATED 346 10^3/uL (150-450); RED BLOOD COUNT 5.05 10^6/uL (4.30-6.10); WHITE BLOOD COUNT 12.9 10^3/uL (4.0-10.0)
[2022-10-05 18:45] LABS: ETHYL ALCOHOL (ETHANOL) 0.005 % (0.000-0.010)
[2022-10-05 18:47] LABS: SALICYLATE LEVEL < 3.0 MG/DL (<30)
[2022-10-05 18:48] LABS: ACETAMINOPHEN LEVEL < 2.0 UG/ML (10.0-20.0); ALBUMIN 3.7 G/DL (3.2-5.2); ALKALINE PHOSPHATASE 72 U/L (46-116); ALT/SGPT 23 U/L (7.0-40); AST/SGOT 15 U/L (<34); BILIRUBIN,DIRECT < 0.1 MG/DL (<0.4); BILIRUBIN,TOTAL 0.2 MG/DL (0.3-1.2); BLOOD UREA NITROGEN 21 MG/DL (9-23); CALCIUM LEVEL 9.5 MG/DL (8.5-10.1); CARBON DIOXIDE LEVEL 25 MMOL/L (20-31); CHLORIDE LEVEL 105 MMOL/L (98-107); GLOMERULAR FILTRATION RATE > 60.0 (>60); GLUCOSE, FASTING 89 MG/DL (60-100); SODIUM LEVEL 137 MMOL/L (136-145); TOTAL PROTEIN 7.6 G/DL (5.7-8.2)
[2022-10-05 18:50] LABS: THYROID STIMULATING HORMONE 1.548 uIU/ML (0.55-4.78)
[2022-10-05 19:17] LABS: CK-MB VALUE MASS < 1.0 NG/ML (<3.6)
[2022-10-05 19:18] LABS: CPK CREATINE PHOSPHOKINASE 56 U/L (46-171); MB/CK RELATIVE INDEX 1.78 (< OR =4)
[2022-10-05 19:41] LABS: AMPHETAMINES LEVEL URINE NEGATIVE (NEGATIVE); BARBITURATES URINE NEGATIVE (NEGATIVE); BENZODIAZEPINES URINE NEGATIVE (NEGATIVE); COCAINE METABOLITE URINE NEGATIVE (NEGATIVE); METHADONE URINE NEGATIVE (NEGATIVE); OPIATES URINE NEGATIVE (NEGATIVE); PHENCYCLIDINE URINE NEGATIVE (NEGATIVE)
[2022-10-05 19:42] LABS: CANNABINOIDS URINE POSITIVE (NEGATIVE)
[2022-10-05 20:05] LABS: CK-MB VALUE MASS < 1.0 NG/ML (<3.6)
[2022-10-05 20:13] LABS: CPK CREATINE PHOSPHOKINASE 55 U/L (46-171); MB/CK RELATIVE INDEX 1.81 (< OR =4)
[2022-10-05] MEDS ORDERED: busPIRone 10 MG TAB PO SCH (21:00)
[2022-10-05] MEDS ORDERED: QUEtiapine FUMARATE 200 MG TAB PO SCH (21:00)
[2022-10-05] MEDS ORDERED: MOM 30ML SUSPENSION UDC PO PRN (21:25)
[2022-10-05] MEDS ORDERED: MAALOX 30 ML SUSP *UDC PO PRN (21:25)
[2022-10-05] MEDS ORDERED: ACETAMINOPHEN TAB 650MG DOSE (2X325MG) PO PRN (21:25)
[2022-10-05] MEDS ORDERED: LORazepam 2 MG TAB PO PRN (21:30)
[2022-10-05] MEDS ORDERED: QUET200T2 PO (22:37)
[2022-10-05] MEDS ORDERED: BUSP10TA PO (22:37)
[2022-10-05] MEDS ORDERED: ABIL400I IM (22:37)
[2022-10-05] MEDS ORDERED: BUPR150T12 PO (22:37)
[2022-10-05] MEDS ORDERED: HOME MED LIST COMPLETE! XX SCH (22:40)
[2022-10-05] MEDS: THIAMINE 100 MG TAB PO SCH (22:51)
[2022-10-06] VITALS (7 sets, daily range): BP systolic 121–151; BP diastolic 72–93
[2022-10-06] MEDS ORDERED: guanFACINE 1 MG TAB PO SCH ×2 (09:00→22:00)
[2022-10-06] MEDS ORDERED: CETIRIZINE (ZyrTEC) 10 MG TAB PO SCH (09:00)
[2022-10-06] MEDS ORDERED: OMEPRAZOLE 20MG CAP PO SCH (09:00)
[2022-10-06] MEDS ORDERED: buPROPion **XL** TABLET 150MG (WELLBUTRIN XL) PO SCH (09:00)
[2022-10-06] MEDS: FOLIC ACID 1MG TAB PO SCH (09:29)
[2022-10-06] MEDS: MULTIVITAMINS/MINERALS THERAP 1 TAB PO SCH (09:29)
[2022-10-06] MEDS: NICOTINE 21MG/24HR 1 EA TRANSDERMAL TD SCH (09:29)
[2022-10-06] MEDS: THIAMINE 100 MG TAB PO SCH ×2 (09:29→20:52)
[2022-10-06] MEDS ORDERED: GUAN1TAB17 PO (21:28)
[2022-10-06] MEDS: QUEtiapine FUMARATE 200 MG TAB PO SCH (21:43)
[2022-10-06] MEDS: busPIRone 10 MG TAB PO SCH (21:43)
[2022-10-07] MEDS: traZODone 50 MG TAB PO PRN (01:38)
[2022-10-07 06:02] VITALS: BP 123/79
[2022-10-07 08:00] VITALS: BP 104/70
[2022-10-07] MEDS: OMEPRAZOLE 20MG CAP PO SCH (09:15)
[2022-10-07] MEDS: MULTIVITAMINS/MINERALS THERAP 1 TAB PO SCH (09:15)
[2022-10-07] MEDS: THIAMINE 100 MG TAB PO SCH ×2 (09:15→21:34)
[2022-10-07] MEDS: buPROPion **XL** TABLET 150MG (WELLBUTRIN XL) PO SCH (09:16)
[2022-10-07] MEDS: FOLIC ACID 1MG TAB PO SCH (09:16)
[2022-10-07] MEDS: busPIRone 10 MG TAB PO SCH ×2 (09:16→21:34)
[2022-10-07] MEDS: ESCITALOPRAM OXALATE 5MG TABLET (LEXAPRO) PO SCH (09:16)
[2022-10-07] MEDS: NICOTINE 21MG/24HR 1 EA TRANSDERMAL TD SCH (09:18)
[2022-10-07] MEDS ORDERED: ARIPiprazole MONOHYDRATE 400 MG INJ (ABILIFY)(FREE PSY INPT ONLY) IM ONE (16:00)
[2022-10-07 18:00] VITALS: BP 132/80
[2022-10-07] MEDS: QUEtiapine FUMARATE 200 MG TAB PO SCH (21:34)
[2022-10-08] MEDS: traZODone 50 MG TAB PO PRN (00:10)
[2022-10-08 06:39] VITALS: BP 135/82
[2022-10-08] MEDS: THIAMINE 100 MG TAB PO SCH (09:36)
[2022-10-08] MEDS: buPROPion **XL** TABLET 150MG (WELLBUTRIN XL) PO SCH (09:37)
[2022-10-08] MEDS: OMEPRAZOLE 20MG CAP PO SCH (09:37)
[2022-10-08] MEDS: busPIRone 10 MG TAB PO SCH ×2 (09:38→20:51)
[2022-10-08] MEDS: ESCITALOPRAM OXALATE 5MG TABLET (LEXAPRO) PO SCH (09:38)
[2022-10-08] MEDS: NICOTINE 21MG/24HR 1 EA TRANSDERMAL TD SCH (09:39)
[2022-10-08] MEDS: QUEtiapine FUMARATE 200 MG TAB PO SCH (20:50)
[2022-10-08] MEDS: traZODone 100 MG TAB PO PRN (22:08)
[2022-10-09] MEDS: OLANZapine ORAL DISINTEGRATING TAB 5MG PO PRN ×3 (00:44→23:47)
[2022-10-09 06:59] VITALS: BP 144/80
[2022-10-09] MEDS: ESCITALOPRAM OXALATE 5MG TABLET (LEXAPRO) PO SCH (09:51)
[2022-10-09] MEDS: busPIRone 10 MG TAB PO SCH ×2 (09:51→21:02)
[2022-10-09] MEDS: OMEPRAZOLE 20MG CAP PO SCH (09:52)
[2022-10-09] MEDS: buPROPion **XL** TABLET 150MG (WELLBUTRIN XL) PO SCH (09:52)
[2022-10-09] MEDS: NICOTINE 21MG/24HR 1 EA TRANSDERMAL TD SCH (09:52)
[2022-10-09 16:15] VITALS: BP 139/84
[2022-10-09] MEDS: QUEtiapine FUMARATE 200 MG TAB PO SCH (21:02)
[2022-10-09] MEDS: traZODone 100 MG TAB PO PRN (22:37)
[2022-10-10] MEDS: OLANZapine ORAL DISINTEGRATING TAB 5MG PO PRN (05:02)
[2022-10-10] MEDS: ESCITALOPRAM OXALATE 5MG TABLET (LEXAPRO) PO SCH (08:17)
[2022-10-10] MEDS: busPIRone 10 MG TAB PO SCH ×2 (08:17→20:37)
[2022-10-10] MEDS: buPROPion **XL** TABLET 150MG (WELLBUTRIN XL) PO SCH (08:18)
[2022-10-10] MEDS: OMEPRAZOLE 20MG CAP PO SCH (08:18)
[2022-10-10] MEDS: NICOTINE 21MG/24HR 1 EA TRANSDERMAL TD SCH (08:18)
[2022-10-10] MEDS ORDERED: traZODone 100 MG TAB PO PRN ×2 (09:10→09:15)
[2022-10-10 16:27] VITALS: BP 132/88
[2022-10-10] MEDS: QUEtiapine FUMARATE 200 MG TAB PO SCH (20:37)
[2022-10-10] MEDS: hydrOXYzine 50 MG TAB PO PRN (22:15)
[2022-10-11 06:27] VITALS: BP 133/83
[2022-10-11] MEDS: buPROPion **XL** TABLET 150MG (WELLBUTRIN XL) PO SCH (08:59)
[2022-10-11] MEDS: busPIRone 10 MG TAB PO SCH ×2 (08:59→20:58)
[2022-10-11] MEDS: NICOTINE 21MG/24HR 1 EA TRANSDERMAL TD SCH (08:59)
[2022-10-11] MEDS: OMEPRAZOLE 20MG CAP PO SCH (08:59)
[2022-10-11] MEDS: ESCITALOPRAM OXALATE 5MG TABLET (LEXAPRO) PO SCH (08:59)
[2022-10-11 16:13] VITALS: BP 150/72
[2022-10-11] MEDS: hydrOXYzine 50 MG TAB PO PRN (20:57)
[2022-10-11] MEDS: QUEtiapine FUMARATE 200 MG TAB PO SCH (20:58)
[2022-10-12 06:09] VITALS: BP 136/80
[2022-10-12] MEDS: OMEPRAZOLE 20MG CAP PO SCH (08:42)
[2022-10-12] MEDS: buPROPion **XL** TABLET 150MG (WELLBUTRIN XL) PO SCH (08:42)
[2022-10-12] MEDS: busPIRone 10 MG TAB PO SCH ×2 (08:43→20:44)
[2022-10-12] MEDS: NICOTINE 21MG/24HR 1 EA TRANSDERMAL TD SCH (08:44)
[2022-10-12] MEDS ORDERED: ESCITALOPRAM OXALATE 5MG TABLET (LEXAPRO) PO SCH (09:00)
[2022-10-12] MEDS ORDERED: ESCITALOPRAM OXALATE 10 MG TAB (LEXAPRO) PO SCH (09:00)
[2022-10-12] MEDS ORDERED: buPROPion **XL** TABLET 150MG (WELLBUTRIN XL) PO ONE (13:10)
[2022-10-12] MEDS: hydrOXYzine 50 MG TAB PO PRN (13:31)
[2022-10-12 17:58] VITALS: BP 148/88
[2022-10-12] MEDS: QUEtiapine FUMARATE 200 MG TAB PO SCH (20:44)
[2022-10-13] MEDS: hydrOXYzine 50 MG TAB PO PRN ×2 (01:00→16:41)
[2022-10-13 06:42] VITALS: BP 137/88
[2022-10-13] MEDS: ESCITALOPRAM OXALATE 10 MG TAB (LEXAPRO) PO SCH (09:02)
[2022-10-13] MEDS: OMEPRAZOLE 20MG CAP PO SCH (09:02)
[2022-10-13] MEDS: NICOTINE 21MG/24HR 1 EA TRANSDERMAL TD SCH (09:03)
[2022-10-13] MEDS: busPIRone 10 MG TAB PO SCH ×2 (09:03→20:33)
[2022-10-13] MEDS: buPROPion **XL** TABLET 150MG (WELLBUTRIN XL) PO SCH (09:03)
[2022-10-13] MEDS ORDERED: PILL CUTTER 1 EACH XX PRN (10:05)
[2022-10-13 16:14] VITALS: BP 135/75
[2022-10-13] MEDS: QUEtiapine FUMARATE 200 MG TAB PO SCH (20:33)
[2022-10-13] MEDS: traZODone 100 MG TAB PO PRN (21:43)
[2022-10-14 06:26] VITALS: BP 139/79
[2022-10-14] MEDS: NICOTINE 21MG/24HR 1 EA TRANSDERMAL TD SCH (08:42)
[2022-10-14] MEDS: busPIRone 10 MG TAB PO SCH ×2 (08:42→21:13)
[2022-10-14] MEDS: OMEPRAZOLE 20MG CAP PO SCH (08:42)
[2022-10-14] MEDS: buPROPion **XL** TABLET 150MG (WELLBUTRIN XL) PO SCH (08:42)
[2022-10-14] MEDS: ESCITALOPRAM OXALATE 10 MG TAB (LEXAPRO) PO SCH (08:42)
[2022-10-14 16:11] VITALS: BP 135/69
[2022-10-14] MEDS: hydrOXYzine 50 MG TAB PO PRN (18:23)
[2022-10-14] MEDS: QUEtiapine FUMARATE 200 MG TAB PO SCH (21:13)
[2022-10-14] MEDS: traZODone 100 MG TAB PO PRN (22:41)
[2022-10-15 06:14] VITALS: BP 134/68
[2022-10-15] MEDS: buPROPion **XL** TABLET 150MG (WELLBUTRIN XL) PO SCH (08:22)
[2022-10-15] MEDS: OMEPRAZOLE 20MG CAP PO SCH (08:22)
[2022-10-15] MEDS: ESCITALOPRAM OXALATE 10 MG TAB (LEXAPRO) PO SCH (08:22)
[2022-10-15] MEDS: busPIRone 10 MG TAB PO SCH ×2 (08:22→21:06)
[2022-10-15] MEDS: NICOTINE 21MG/24HR 1 EA TRANSDERMAL TD SCH (08:23)
[2022-10-15 15:43] VITALS: BP 136/78
[2022-10-15] MEDS: hydrOXYzine 50 MG TAB PO PRN (18:50)
[2022-10-15] MEDS: traZODone 100 MG TAB PO PRN (21:06)
[2022-10-15] MEDS: QUEtiapine FUMARATE 200 MG TAB PO SCH (21:06)
[2022-10-16 06:15] VITALS: BP 123/74
[2022-10-16] MEDS: busPIRone 10 MG TAB PO SCH ×2 (09:05→21:11)
[2022-10-16] MEDS: buPROPion **XL** TABLET 150MG (WELLBUTRIN XL) PO SCH (09:06)
[2022-10-16] MEDS: ESCITALOPRAM OXALATE 10 MG TAB (LEXAPRO) PO SCH (09:06)
[2022-10-16] MEDS: OMEPRAZOLE 20MG CAP PO SCH (09:06)
[2022-10-16] MEDS: NICOTINE 21MG/24HR 1 EA TRANSDERMAL TD SCH (09:09)
[2022-10-16 18:52] VITALS: BP 144/81
[2022-10-16] MEDS ORDERED: hydrOXYzine 50 MG TAB PO SCH (21:00)
[2022-10-16] MEDS: hydrOXYzine 50 MG TAB PO PRN (21:10)
[2022-10-16] MEDS: QUEtiapine FUMARATE 200 MG TAB PO SCH (21:11)
[2022-10-16] MEDS: traZODone 100 MG TAB PO PRN (21:11)
[2022-10-17 06:15] VITALS: BP 140/89
[2022-10-17] MEDS: NICOTINE 21MG/24HR 1 EA TRANSDERMAL TD SCH (08:17)
[2022-10-17] MEDS: busPIRone 10 MG TAB PO SCH ×2 (08:17→21:09)
[2022-10-17] MEDS: ESCITALOPRAM OXALATE 10 MG TAB (LEXAPRO) PO SCH (08:17)
[2022-10-17] MEDS: OMEPRAZOLE 20MG CAP PO SCH (08:17)
[2022-10-17] MEDS: buPROPion **XL** TABLET 150MG (WELLBUTRIN XL) PO SCH (08:17)
[2022-10-17] MEDS: hydrOXYzine 50 MG TAB PO PRN ×2 (09:44→21:54)
[2022-10-17 17:11] VITALS: BP 139/81
[2022-10-17] MEDS: QUEtiapine FUMARATE 200 MG TAB PO SCH (21:09)
[2022-10-17] MEDS: traZODone 100 MG TAB PO PRN (21:09)
[2022-10-18 06:00] VITALS: BP 133/63
[2022-10-18] MEDS: NICOTINE 21MG/24HR 1 EA TRANSDERMAL TD SCH (09:00)
[2022-10-18] MEDS: ESCITALOPRAM OXALATE 10 MG TAB (LEXAPRO) PO SCH (09:01)
[2022-10-18] MEDS: buPROPion **XL** TABLET 150MG (WELLBUTRIN XL) PO SCH (09:01)
[2022-10-18] MEDS: busPIRone 10 MG TAB PO SCH (09:01)
[2022-10-18] MEDS: OMEPRAZOLE 20MG CAP PO SCH (09:02)
[2022-10-18] MEDS ORDERED: OMEP-173 PO (10:24)
[2022-10-18] MEDS ORDERED: BUSP10TA PO (10:24)
[2022-10-18] MEDS ORDERED: LEXA1TAB PO (10:24)
[2022-10-18] MEDS ORDERED: TRAZ-257 PO (10:24)
[2022-10-18] MEDS ORDERED: ABIL1TAB11 PO (10:24)
[2022-10-18] MEDS ORDERED: ABIL400I IM (10:24)
[2022-10-18] MEDS ORDERED: BUPR150T12 PO (10:24)
[2022-10-18] MEDS ORDERED: QUET200T2 PO (10:24)
[2022-10-18] MEDS: hydrOXYzine 50 MG TAB PO PRN (11:10)
== END 2022-10-18 11:44 | disposition home or self-care (01) | DRG 754 ==
LOC: M ED 17:29 → M ED INP 21:24 → M PSY 23:59
PROVIDERS: ADMIT Student in an Organized Health Care Education/Training Program; ATTEND Student in an Organized Health Care Education/Training Program
DX: F32.A Depression, unspecified (principal); F25.9 Schizoaffective disorder, unspecified; Z79.899 Other long term (current) drug therapy; K21.9 Gastro-esophageal reflux disease without esophagitis; F41.9 Anxiety disorder, unspecified; F17.200 Nicotine dependence, unspecified, uncomplicated; F12.90 Cannabis use, unspecified, uncomplicated; R07.9 Chest pain, unspecified; F10.10 Alcohol abuse, uncomplicated; Z91.128 Patient's intentional underdosing of medication regimen for other reason

== ENCOUNTER → 2022-12-14 | Outpatient (REF) | payer BC, OTHER ==
[~2022-12-14] MED LIST changes: +ABIL1INJ2 IM; +ABIL1TAB11 PO; +ATOM60CA2 PO; +ATOM60CA7; +BUPR150T12 PO; +BUPR300T92 PO; +BUSP10TA PO; +CETI10CH PO; +GUAN1TAB17; +GUAN1TAB17 PO; +LEXA1TAB PO; +LEXA1TAB2 PO; +OMEP-173 PO; +QUET200T2 PO; +TRAZ-252 PO; +TRAZ-257 PO; +VITMTA PO
[2022-12-14 13:43] LABS: BASO % 0.5 % (0.0-1.0); EOS # 0.1 10^3/uL (0.0-0.5); EOS % 1.6 % (0.0-3.0); HEMATOCRIT 40.9 % (42.0-52.0); HEMOGLOBIN 13.2 g/dl (13.5-17.5); LYMPH # 1.8 10^3/uL (1.5-5.0); LYMPH % 23.6 % (24.0-44.0); MEAN CORPUSCULAR HEMOGLOBIN 29.9 pg (27.0-33.0); MEAN CORPUSCULAR HGB CONC 32.3 g/dl (32.0-36.5); MEAN CORPUSCULAR VOLUME 92.7 fl (80.0-96.0); MONO # 0.6 10^3/uL (0.0-0.8); MONO % 7.8 % (2.0-8.0); NEUTROPHILS % 66.2 % (36.0-66.0); PLATELET COUNT, AUTOMATED 312 10^3/uL (150-450); RED BLOOD COUNT 4.41 10^6/uL (4.30-6.10); WHITE BLOOD COUNT 7.6 10^3/uL (4.0-10.0)
[2022-12-14 13:53] LABS: ALBUMIN 3.9 G/DL (3.2-5.2); ALKALINE PHOSPHATASE 90 U/L (46-116); ALT/SGPT 18 U/L (7.0-40); AST/SGOT < 8 U/L (<34); BILIRUBIN,TOTAL 0.3 MG/DL (0.3-1.2); BLOOD UREA NITROGEN 16 MG/DL (9-23); CALCIUM LEVEL 9.8 MG/DL (8.5-10.1); CARBON DIOXIDE LEVEL 28 MMOL/L (20-31); CHLORIDE LEVEL 108 MMOL/L (98-107); CHOLESTEROL LEVEL 176 MG/DL (<200); CHOLESTEROL RISK RATIO 3.77 (<5); CREATININE FOR GFR 0.85 MG/DL (0.70-1.30); GLOMERULAR FILTRATION RATE > 60.0 (>60); GLUCOSE, FASTING 93 MG/DL (60-100); HDL CHOLESTEROL 46.6 MG/DL (>40); LDL CHOLESTEROL 115.2 MG/DL (<100); NON-HDL-C 129.4 MG/DL; POTASSIUM SERUM 4.3 MMOL/L (3.5-5.1); SODIUM LEVEL 137 MMOL/L (136-145); THYROID STIMULATING HORMONE 0.994 uIU/ML (0.55-4.78); TOTAL 25(OH) VITAMIN D 31.1 NG/ML (20.0-100.0); TRIGLYCERIDES LEVEL 71 MG/DL (<150)
[2022-12-14 18:02] LABS: HEMOGLOBIN A1c 5.1 % (4.0-6.0)
== END ==
LOC: M LAB REF 12:49
PROVIDERS: ATTEND Nurse Practitioner Family
DX: R79.89 Other specified abnormal findings of blood chemistry (principal); Z13.228 Encounter for screening for other metabolic disorders

== ENCOUNTER → 2023-04-13 | Outpatient (CLI) | payer BC, OTHER ==
[2023-04-13 06:54] LABS: BASO # 0.1 10^3/uL (0.0-0.2); BASO % 0.8 % (0.0-1.0); EOS # 0.2 10^3/uL (0.0-0.5); EOS % 2.7 % (0.0-3.0); HEMATOCRIT 36.8 % (42.0-52.0); HEMOGLOBIN 11.8 g/dl (13.5-17.5); LYMPH # 2.7 10^3/uL (1.5-5.0); LYMPH % 42.6 % (24.0-44.0); MEAN CORPUSCULAR HEMOGLOBIN 28.5 pg (27.0-33.0); MEAN CORPUSCULAR HGB CONC 32.1 g/dl (32.0-36.5); MEAN CORPUSCULAR VOLUME 88.9 fl (80.0-96.0); MONO # 0.7 10^3/uL (0.0-0.8); MONO % 10.6 % (2.0-8.0); NEUTROPHILS # 2.7 10^3/uL (1.5-8.5); PLATELET COUNT, AUTOMATED 262 10^3/uL (150-450); RED BLOOD COUNT 4.14 10^6/uL (4.30-6.10); WHITE BLOOD COUNT 6.3 10^3/uL (4.0-10.0)
[2023-04-13 07:23] LABS: THYROID STIMULATING HORMONE 1.224 uIU/ML (0.55-4.78)
[2023-04-13 07:24] LABS: TOTAL 25(OH) VITAMIN D 23.5 NG/ML (20.0-100.0); VITAMIN B12 LEVEL 445 PG/ML (211-911)
[2023-04-13 07:27] LABS: HEMOGLOBIN A1c 4.9 % (4.0-6.0)
[2023-04-13 07:33] LABS: ALBUMIN 3.6 G/DL (3.2-5.2); ALKALINE PHOSPHATASE 72 U/L (46-116); ALT/SGPT 25 U/L (7.0-40); AST/SGOT 14 U/L (<34); BILIRUBIN,TOTAL 0.4 MG/DL (0.3-1.2); BLOOD UREA NITROGEN 18 MG/DL (9-23); CARBON DIOXIDE LEVEL 30 MMOL/L (20-31); CHLORIDE LEVEL 107 MMOL/L (98-107); CHOLESTEROL LEVEL 189 MG/DL (<200); CHOLESTEROL RISK RATIO 3.52 (<5); CREATININE FOR GFR 0.98 MG/DL (0.70-1.30); GLOMERULAR FILTRATION RATE > 60.0 (>60); GLUCOSE, FASTING 103 MG/DL (60-100); HDL CHOLESTEROL 53.6 MG/DL (>40); LDL CHOLESTEROL 112.8 MG/DL (<100); NON-HDL-C 135.4 MG/DL; POTASSIUM SERUM 3.9 MMOL/L (3.5-5.1); SODIUM LEVEL 143 MMOL/L (136-145); TOTAL PROTEIN 6.5 G/DL (5.7-8.2); TRIGLYCERIDES LEVEL 113 MG/DL (<150)
== END ==
LOC: M LAB 06:14
PROVIDERS: ATTEND Nurse Practitioner Psychiatric/Mental Health
DX: F90.0 Attention-deficit hyperactivity disorder, predominantly inattentive type (principal); F25.0 Schizoaffective disorder, bipolar type

== ENCOUNTER → 2024-08-26 | Outpatient (REF) | payer BC ==
[~2024-08-26] MED LIST changes: +BUPR-597 PO; -BUPR300T92 PO
[2024-08-26 19:44] LABS: BASO % 0.6 % (0.0-1.0); EOS # 0.2 10^3/uL (0.0-0.5); EOS % 2.4 % (0.0-3.0); LYMPH # 2.3 10^3/uL (1.5-5.0); LYMPH % 37.4 % (24.0-44.0); MEAN CORPUSCULAR HEMOGLOBIN 29.1 pg (27.0-33.0); MEAN CORPUSCULAR HGB CONC 32.5 g/dl (32.0-36.5); MEAN CORPUSCULAR VOLUME 89.5 fl (80.0-96.0); MONO # 0.8 10^3/uL (0.0-0.8); NEUTROPHILS % 47.3 % (36.0-66.0); PLATELET COUNT, AUTOMATED 298 10^3/uL (150-450); RED BLOOD COUNT 4.47 10^6/uL (4.30-6.10); WHITE BLOOD COUNT 6.3 10^3/uL (4.0-10.0)
[2024-08-26 20:18] LABS: ALBUMIN 3.9 G/DL (3.2-5.2); ALKALINE PHOSPHATASE 76 U/L (40-129); ALT/SGPT 22 U/L (7.0-40); AST/SGOT 13 U/L (<34); BILIRUBIN,TOTAL 0.2 MG/DL (0.3-1.2); BLOOD UREA NITROGEN 16 MG/DL (9-23); CALCIUM LEVEL 9.2 MG/DL (8.5-10.1); CARBON DIOXIDE LEVEL 27 MMOL/L (20-31); CHLORIDE LEVEL 107 MMOL/L (98-107); CHOLESTEROL LEVEL 209 MG/DL (<200); CHOLESTEROL RISK RATIO 4.46 (<5); CREATININE FOR GFR 0.87 MG/DL (0.70-1.30); GLOMERULAR FILTRATION RATE > 60.0 (>60); GLUCOSE, FASTING 89 MG/DL (60-100); HDL CHOLESTEROL 46.8 MG/DL (>40); LDL CHOLESTEROL 124.6 MG/DL (<100); MAGNESIUM LEVEL 2.1 MG/DL (1.8-2.4); NON-HDL-C 162.2 MG/DL; POTASSIUM SERUM 4.7 MMOL/L (3.5-5.1); SODIUM LEVEL 143 MMOL/L (136-145); TOTAL PROTEIN 7.1 G/DL (5.7-8.2); TRIGLYCERIDES LEVEL 188 MG/DL (<150)
[2024-08-26 20:21] LABS: THYROID STIMULATING HORMONE 1.552 uIU/ML (0.55-4.78)
[2024-08-26 20:23] LABS: TOTAL 25(OH) VITAMIN D 24.6 NG/ML (20.0-100.0)
[2024-08-26 20:38] LABS: HEMOGLOBIN A1c 5.4 % (4.0-6.0)
== END ==
LOC: M LAB REF 17:34
PROVIDERS: ATTEND Nurse Practitioner Family
DX: E66.9 Obesity, unspecified (principal); E55.9 Vitamin D deficiency, unspecified

== ENCOUNTER 2025-04-28 07:26 | Day surgery (SDC) | payer BC ==
[~2025-04-28] VITALS: Ht 182.9 cm; Wt 101.6 kg
[~2025-04-28 07:26] MED LIST changes: -ABIL400I IM; +ARIP1TAB4 PO; +ARIP400S IM; -BUPR-597 PO; +BUPR-766 PO; +THERTAB52 PO
[2025-04-28] MEDS ORDERED: LIDOCAINE 2% 100 MG/5 ML SDV (FOR ANES.) As Ordered ONE (09:11)
[2025-04-28] MEDS ORDERED: GLYCOPYRROLATE INJ 0.2 MG/ML 2 ML VIAL As Ordered ONE (09:11)
[2025-04-28 09:26] VITALS: TEMP 97.8
[2025-04-28 09:38] VITALS: BP 116/71; O2SAT 99
== END 2025-04-28 10:04 | disposition home or self-care (01) ==
LOC: M OPP 07:26
PROVIDERS: ATTEND Surgery
DX: Z12.11 Encounter for screening for malignant neoplasm of colon (principal); Z79.899 Other long term (current) drug therapy; F17.210 Nicotine dependence, cigarettes, uncomplicated
CPT/HCPCS: 45378; J1596

== ENCOUNTER → 2025-05-12 | Outpatient (REF) | payer BC ==
[2025-05-12 16:57] LABS: BASO # 0.1 10^3/uL (0.0-0.2); BASO % 0.7 % (0.0-1.0); EOS # 0.1 10^3/uL (0.0-0.5); EOS % 1.2 % (0.0-3.0); LYMPH # 2.4 10^3/uL (1.5-5.0); LYMPH % 32.7 % (24.0-44.0); MONO # 0.9 10^3/uL (0.0-0.8); MONO % 12.5 % (2.0-8.0); NEUTROPHILS # 3.8 10^3/uL (1.5-8.5); NEUTROPHILS % 52.6 % (36.0-66.0); PLATELET COUNT, AUTOMATED 283 10^3/uL (150-450)
[2025-05-12 17:27] LABS: ALT/SGPT 23 U/L (7.0-40); AST/SGOT 17 U/L (<34); CHOLESTEROL LEVEL 148 MG/DL (<200); CHOLESTEROL RISK RATIO 2.93 (<5); IRON (FE) 57 UG/DL (65-175); LDL CHOLESTEROL 78.3 MG/DL (<100); NON-HDL-C 97.5 MG/DL; PERCENT SATURATION 15.9 % (19.7-50.0); TRIGLYCERIDES LEVEL 96 MG/DL (<150)
== END ==
LOC: M LAB REF 16:26
PROVIDERS: ATTEND Nurse Practitioner Family
DX: D64.9 Anemia, unspecified (principal); E78.5 Hyperlipidemia, unspecified